=== PATIENT | female | born 1995 | race Caucasian/White ===

== ENCOUNTER 2019-05-13 12:08 | Emergency (ER) | payer SELFPAY ==
[2019-05-13 12:16] VITALS: BP 114/83; PULSE 74; RESP 14; TEMP 36.9; O2SAT 99; BMI 20.8
[2019-05-13] MEDS: KETOROLAC 60 MG/2 ML VIAL IM (12:26)
[2019-05-13] MEDS: TET,DIPH,PERTUSS(ACELL),VAC/PF 0.5 ML SYRINGE IM (12:26)
--- NOTE | 2019-05-13 12:55 | PC.NURSE ---
Soaked the hand for 15 min in warm, soapy water per provider order.
--- NOTE | 2019-05-13 13:05 | ED_ITS ---
HPI - Wound/Laceration <GIULIANA Botello - Last Filed: 05/13/19 16:17> General Chief Complaint: Wound/Laceration Stated Complaint: cat bites to left hand today Time Seen by Provider: 05/13/19 12:12 Source: patient Mode of arrival: ambulatory Limitations: no limitations History of Present Illness HPI narrative: The patient is a 23-year-old female with history of GERD current smoker presents with a chief complaint of cat bite. She states she was bit by her own cat when it got scared. She does not know when her last tetanus was. She states the cat is vaccinated. She has not taken anything for the pain. She states she has multiple puncture blanton throughout her hand. Related Data Previous Rx's Medication Instructions Recorded cyclobenzaprine 5 mg PO Q8HP PRN #10 tab 11/18/17 omeprazole 20 mg PO QDAY #14 cap 11/18/17 amoxicillin-pot clavulanate 1 tab PO BID #20 tab 05/13/19 [Augmentin] ketorolac 10 mg PO TID PRN #15 tab 05/13/19 Allergies Allergy/AdvReac Type Severity Reaction Status Date / Time No Known Drug Allergies Allergy Verified 05/13/19 12:16 Review of Systems <GIULIANA Botello - Last Filed: 05/13/19 16:17> Review of Systems GENERAL: Denies chills, fatigue, malaise, fever, sweats. HEENT: Denies sinus pain, ear pain, sore throat, difficulty swallowing, dizziness. RESPIRATORY: Denies dyspnea, cough, wheezing, hemoptysis, sputum. CARDIOVASCULAR: Denies chest pain, palpitations, orthopnea, edema, GASTROINTESTINAL: Denies nausea, vomiting, abdominal pain, diarrhea, constipation, melena. : Denies dysuria, frequency, incontinence, hematuria, urinary retention. MUSCULOSKELETAL: See HPI SKIN: See HPI NEUROLOGIC: Denies weakness, headache, numbness, change in speech, confusion, seizures, incoordination. PSYCHIATRIC: No concerning psychosocial issues. 12 point review of systems is negative except for those stated above PFSH <GIULIANA Botello - Last Filed: 05/13/19 16:17> Medical History (Updated 05/13/19 @ 16:16 by Rebeka Jamie, [employer]) Family history non-contributory (Acute) Medical history non-contributory (Acute) Social History Smoking Status: Current every day smoker Social History Smoking Status: Current every day smoker Exam <GIULIANA Botello - Last Filed: 05/13/19 16:17> Narrative Exam Narrative: GENERAL: This is a well-nourished, well-developed patient, no acute distress HEAD: Atraumatic. Normocephalic. No temporal or scalp tenderness. EYES: Pupils equal round and reactive. Extraocular motions intact. No scleral icterus. No injection or drainage. ENT: Nose without bleeding, purulent drainage or septal hematoma. Throat without erythema, tonsillar hypertrophy or exudate. Uvula midline. Airway patent. NECK: Trachea midline. No JVD or lymphadenopathy. Supple, nontender, no meningeal signs. CARDIOVASCULAR: Regular rate and rhythm RESPIRATORY: No cough. No increased respiratory effort. No accessory muscle use. EXTREMITIES: See below. Capillary refill less than 2 seconds all fingers left hand. BACK: Nontender without deformity or crepitance. No flank tenderness. NEURO: AOx3. SKIN: Multiple puncture blanton over left hand and fingers. Multiple puncture blanton noted left index finger. Swelling and decreased flexion noted left index finger. Patient is able to flex and extend all fingers against resistance. Initial Vital Signs Initial Vital Signs: Vital Signs Temperature 98.4 F 05/13/19 12:16 Pulse Rate 74 05/13/19 12:16 Respiratory Rate 14 05/13/19 12:16 Blood Pressure 114/83 05/13/19 12:16 Pulse Oximetry 99 05/13/19 12:16 <Mercy Springer MD - Last Filed: 05/13/19 19:55> Initial Vital Signs Initial Vital Signs: Vital Signs Temperature 98.4 F 05/13/19 12:16 Pulse Rate 74 05/13/19 12:16 Respiratory Rate 14 05/13/19 12:16 Blood Pressure 114/83 05/13/19 12:16 Pulse Oximetry 99 05/13/19 12:16 Course <GIULIANA Botello - Last Filed: 05/13/19 16:17> Orders Ordered: Discontinued Medications Diphtheria/Tetanus/Acell Pertussis (Adacel) 0.5 ml IM .ONCE ONE Stop: 05/13/19 12:18 Last Admin: 05/13/19 12:26 Dose: 0.5 ml Ketorolac Tromethamine (Toradol) 60 mg IM NOW ONE Stop: 05/13/19 12:18 Last Admin: 05/13/19 12:26 Dose: 60 mg Vital Signs - 8 hr 05/13/19 12:16 05/13/19 13:43 Temperature 98.4 F Pulse Rate 74 54 L Respiratory Rate 14 14 Blood Pressure 114/83 93/61 Pulse Oximetry 99 95 <Mercy Springer MD - Last Filed: 05/13/19 19:55> Orders Ordered: Discontinued Medications Diphtheria/Tetanus/Acell Pertussis (Adacel) 0.5 ml IM .ONCE ONE Stop: 05/13/19 12:18 Last Admin: 05/13/19 12:26 Dose: 0.5 ml Ketorolac Tromethamine (Toradol) 60 mg IM NOW ONE Stop: 05/13/19 12:18 Last Admin: 05/13/19 12:26 Dose: 60 mg Vital Signs - 8 hr 05/13/19 12:16 05/13/19 13:43 Temperature 98.4 F Pulse Rate 74 54 L Respiratory Rate 14 14 Blood Pressure 114/83 93/61 Pulse Oximetry 99 95 MDM - Wound/Laceration <GIULIANA Botello - Last Filed: 05/13/19 16:17> MDM Narrative Medical decision making narrative: The patient is a 23-year-old female who presents with a chief complaint of a cat bite to her hand. Her tetanus was updated. The patient repeatedly declined an x-ray. She is neurovascularly intact, and has motion of all fingers. I will start her on Augmentin. She was cleansed with Hibiclens and water. She was given Toradol in the emergency department I gave her prescription thereof with strict instructions to not combine with any other anti-inflammatories. The CaT was vaccinated. I did discuss strict follow-up precautions. Discussed monitoring for decreased range of motion, redness, fever for swelling. Patient states understanding of when to come back to ER. Encouraged her to follow up with her PCP, and states that she would call them tomorrow. No questions or concerns upon discharge. Discharge Plan Departure Patient Disposition: Home Clinical Impression: Cat bite Qualifiers: Encounter type: initial encounter Qualified Code(s): W55.01XA - Bitten by cat, initial encounter Discharge Date/Time: 05/13/19 13:43 Interventions: ED Discharge Assessment Last Done: 05/13/19 13:43 Instructions: DI for Animal Bites, DI for Puncture Wound, DI for Cat Bite Activity Restrictions/Additional Instructions: Today we updated your tetanus, cleaned your wounds, and gave you and anti- inflammatory injection. I have given you a prescription of Toradol. You can start taking this 8 hours after the injection in the emergency department. I have given you a prescription for antibiotics. Please carefully monitor your wounds for worsening, decreased range of motion etc. Please have a very low threshold regarding coming back to the emergency department or following up with your provider. Please come back to the emergency department for any acute concerns. Please follow-up with primary care physician as soon as possible Prescriptions: New ketorolac 10 mg tablet 10 mg PO TID PRN (Reason: pain) Qty: 15 RF: 0 amoxicillin-pot clavulanate [Augmentin] 875-125 mg tablet 1 tab PO BID Qty: 20 RF: 0 No Action omeprazole 20 MG capsule,delayed release(DR/EC) 20 mg PO QDAY Qty: 14 RF: 0 cyclobenzaprine 5 MG tablet 5 mg PO Q8HP PRNQty: 10 RF: 0 Referrals: Ellie Espinal DO [Non-Staff] -
[2019-05-13 13:43] VITALS: BP 93/61; PULSE 54; RESP 14; O2SAT 95
== END 2019-05-13 13:43 | disposition home or self-care (01) ==
PROVIDERS: Emergency Provider Nurse Practitioner Family
DX: S61.452A Open bite of left hand, initial encounter (principal); W55.01XA Bitten by cat, initial encounter
CPT/HCPCS: 90471; 96372; 99283; 90715; J1885

== ENCOUNTER 2019-08-07 09:05 | Emergency (ER) | payer OTHER, MEDICAID, SELFPAY ==
[2019-08-07 09:15] VITALS: BP 120/76; PULSE 86; RESP 16; TEMP 37; O2SAT 100
[2019-08-07] MEDS: ONDANSETRON 4 MG ODT SL (09:37)
--- NOTE | 2019-08-07 11:08 | ED.NAVMDI ---
HPI - Nausea/Vomiting/Diarrhea General Chief complaint: Nausea/Vomiting/Diarrhea Stated complaint: 6 wks ob/naus & vom. ? dehydration Time Seen by Provider: 08/07/19 09:26 Source: patient Mode of arrival: ambulatory Limitations: no limitations History of Present Illness HPI Narrative: This is a 23-year-old female comes to the emergency department with complaint of nausea and vomiting. She has had emesis typically once a day sometimes more frequently. This morning she had 2 episodes. She has been nauseated for the last couple weeks. She has not had any fevers or chills. No abdominal pain, no diarrhea constipation, no frequency dysuria or urgency. No vaginal bleeding. Her last period was about 6 weeks ago she had a small amount of bleeding for just 1 day. Patient states that she does have any other issues. No tobacco, no alcohol. She quit using marijuana about a week ago. Patient denies any allergies to medications. No prior pregnancies. No prior surgery. Related Data Previous Rx's Medication Instructions Recorded ondansetron HCl [Zofran] 4 mg PO QID PRN #14 tab 08/07/19 Allergies Allergy/AdvReac Type Severity Reaction Status Date / Time No Known Drug Allergies Allergy Verified 08/07/19 09:19 Review of Systems Review of Systems ROS Unobtainable: All systems reviewed & are unremarkable except as noted in HPI and below PFSH Medical History Family history non-contributory (Acute) Medical history non-contributory (Acute) Social History Smoking Status: Never smoker Social History Smoking Status: Never smoker Exam Narrative Exam Narrative: GENERAL: Alert and oriented x three, thin, well-appearing female in no acute distress. HEENT: Head normocephalic, atraumatic, EOMI, pupils reactive, face symmetric, moist mucous membranes NECK: Supple, full range of motion CARDIOVASCULAR: Regular rate and rhythm without murmurs, rubs or gallops. RESPIRATORY: Breath sounds equal bilaterally, no wheezes rales or rhonchi. ABDOMEN: Soft, nontender. Normoactive bowel sounds all 4 quadrants. No guarding or rebound, rigidity, no mass : No CVA tenderness EXTREMITIES: Normal range of motion, no clubbing or edema. Neurovascularly intact NEUROLOGICAL: Cranial nerves II through XII grossly intact. Moving all extremities SKIN: Warm, dry, no petechiae, no rashes or lesions. Initial Vital Signs Initial Vital Signs: Vital Signs Temperature 98.6 F 08/07/19 09:15 Pulse Rate 86 08/07/19 09:15 Respiratory Rate 16 08/07/19 09:15 Blood Pressure 120/76 08/07/19 09:15 Pulse Oximetry 100 08/07/19 09:15 Course Orders Ordered: Discontinued Medications Ondansetron HCl (Zofran Odt) 4 mg SL NOW ONE Stop: 08/07/19 09:27 Last Admin: 08/07/19 09:37 Dose: 4 mg Documented by: MILENA Vital Signs Vital signs: Vital Signs - 8 hr 08/07/19 11:31 08/07/19 11:33 Pulse Rate 82 72 Respiratory Rate 16 16 Blood Pressure 116/68 Blood Pressure [Left Arm] 108/65 Pulse Oximetry 100 100 MDM - Nausea/Vomiting/Diarrhea Lab Data Labs: Point of Care Testing Test Results Positive Urine Dip Bedside Urine Glucose Negative Bedside Urine Bilirubin - Negative Bedside Urine Ketone +/- 5 Urine Specific [place] 1.030 Bedside Urine Occult Blood - Negative Bedside Urine pH 5.5 Bedside Urine Protein +/- 15 Bedside Urine Urobilinogen - Negative Bedside Urine Nitrite - Negative Bedside Urine Leukocytes - Negative Esterase MDM Narrative Medical decision making narrative: Patient has intermittent nausea and vomiting. We discussed alternative such as hailey, hailey rodrigue or Sprite type medications and crackers. But she can do Zofran as needed. She is tolerating oral fluids and food in the department. Discharge Plan Departure Patient Disposition: Home Clinical Impression: Nausea and vomiting during Discharge Date/Time: 08/07/19 11:53 Instructions: DI for -- Discomforts and Remedies Activity Restrictions/Additional Instructions: Follow-up with OBGYN at her scheduled appointment. You may take Zofran 1 tablet every 6 hours as needed for nausea. You may try hailey, hailey rodrigue, Sprite or similar options for nausea with . Prescription sent to [facility] in [place]. Return to the emergency department for fevers greater 100.4 F, persistent vomiting, lightheadedness, passing out, new abdominal pain, new vaginal bleeding, black or bloody stools or other new or concerning symptoms. Prescriptions: New ondansetron HCl [Zofran] 4 mg tablet 4 mg PO QID PRN (Reason: nausea and vomiting) Qty: 14 RF: 0 Referrals: Ellie Espinal DO [Primary Care Provider] - Stand Alone Forms: Work Release Note
[2019-08-07 11:31] VITALS: BP 108/65; PULSE 82; RESP 16; O2SAT 100
[2019-08-07 11:33] VITALS: BP 116/68; PULSE 72; RESP 16; O2SAT 100
== END 2019-08-07 11:53 | disposition home or self-care (01) ==
PROVIDERS: Emergency Provider Emergency Medicine; PCP Family Medicine
DX: O21.9 Vomiting of pregnancy, unspecified (principal); Z3A.01 Less than 8 weeks gestation of pregnancy
CPT/HCPCS: 81003; 81025; 99282; 99283

== ENCOUNTER 2019-08-31 01:41 | Emergency (ER) | payer OTHER, MEDICAID, SELFPAY ==
[2019-08-31 01:55] VITALS: BP 105/66; PULSE 68; RESP 14; TEMP 36.7; O2SAT 99; BMI 21.5
[2019-08-31] MEDS: SODIUM CHLORIDE 0.9% 1,000 ML 1000 ML IV ×2 (02:20→04:22)
--- NOTE | 2019-08-31 02:21 | ED.NAVMDI ---
HPI - Nausea/Vomiting/Diarrhea General Chief complaint: Nausea/Vomiting/Diarrhea Stated complaint: approx 8 weeks vomiting/stomach pain Time Seen by Provider: 08/31/19 03:40 Source: patient Mode of arrival: Ambulatory Limitations: no limitations History of Present Illness HPI Narrative: A 23-year-old female comes to the emergency department with complaint of vomiting and abdominal discomfort. Patient states that she is about 8 weeks . She was seen a couple weeks ago by myself for nausea and vomiting she has been using Zofran but continues to emesis throughout the day. She often has multiple episodes and has trouble keeping fluids down. She has not any fevers. She has little bit of abdominal discomfort states she thinks it is from the vomiting. She kind of indicates upper abdomen. She has not had any pelvic pain, she has had normal stools. She has not had any urinary issues no frequency urgency or dysuria. Denies any vaginal bleeding or discharge. Patient is otherwise healthy. She did have a appointment with Dr. Rudolph to establish for care and did have an ultrasound, patient's due date is 04/02/2020. Related Data Home Medications Medication Instructions Recorded Confirmed acyclovir 200 mg capsule 200 mg PO TID 08/14/19 08/20/19 prenat.vits,enid,ist-kenx-nalyq 1 tab PO DAILY 08/14/19 08/20/19 Previous Rx's Medication Instructions Recorded ondansetron 4 mg disintegrating 4 mg PO Q6H PRN #20 tab 08/24/19 tablet metoclopramide HCl [Reglan] 10 mg PO Q6H PRN #10 tab 08/31/19 Allergies Allergy/AdvReac Type Severity Reaction Status Date / Time No Known Drug Allergies Allergy Verified 08/31/19 01:55 Review of Systems Review of Systems ROS Unobtainable: All systems reviewed & are unremarkable except as noted in HPI and below Constitutional Constitutional: Denies chills, Denies fever(s), Denies lethargy and Denies weakness Gastrointestinal Gastrointestinal: Reports abdominal pain, Denies melena, Denies hematochezia, Denies change in bowel habits, Denies diarrhea, Reports nausea and Reports vomiting Genitourinary Genitourinary: Denies abnormal vaginal bleeding, Denies hematuria, Denies urinary frequency, Denies dysuria, Denies flank pain, Denies urinary incontinence, Denies urinary hesitancy and Denies urinary urgency Musculoskeletal Musculoskeletal: Denies back pain Neurologic Neurologic: Denies weakness [facility], [facility] Social History Smoking Status: Current every day smoker Exam Narrative Exam Narrative: GENERAL: Alert and oriented x three, thin female in no acute distress. HEENT: Head normocephalic, atraumatic, EOMI, pupils reactive, face symmetric, moist mucous membranes NECK: Supple, full range of motion CARDIOVASCULAR: Regular rate and rhythm without murmurs, rubs or gallops. RESPIRATORY: Breath sounds equal bilaterally, no wheezes rales or rhonchi. ABDOMEN: Soft, mild generalized tenderness. Normoactive bowel sounds all 4 quadrants. No guarding or rebound, rigidity, no mass : No CVA tenderness EXTREMITIES: Normal range of motion, no clubbing or edema. Neurovascularly intact NEUROLOGICAL: Cranial nerves II through XII grossly intact. Moving all extremities SKIN: Warm, dry, no petechiae, no rashes or lesions. Initial Vital Signs Initial Vital Signs: Vital Signs Temperature 98.1 F 08/31/19 01:55 Pulse Rate 68 08/31/19 01:55 Respiratory Rate 14 08/31/19 01:55 Blood Pressure 105/66 08/31/19 01:55 Pulse Oximetry 99 08/31/19 01:55 Course Orders Ordered: ED Orders 08/31/19 02:12 Complete Blood Count AUTO DIFF Stat Comprehensive Metabolic Panel Stat Lipase Stat 08/31/19 04:02 US OB <= 14 weeks fetus Stat Discontinued Medications Sodium Chloride (Normal Saline 0.9%) 1,000 mls @ 1,000 mls/hr IV BOLUS ONE Stop: 08/31/19 03:16 Last Infusion: 08/31/19 04:00 Dose: 1,000 mls/hr Documented by: Admin: 08/31/19 02:20 Dose: 1,000 mls/hr Documented by: MMCFARL Sodium Chloride (Normal Saline 0.9%) 1,000 mls @ 1,000 mls/hr IV BOLUS ONE Stop: 08/31/19 05:19 Last Infusion: 08/31/19 05:51 Dose: 1,000 mls/hr Documented by: Admin: 08/31/19 04:22 Dose: 1,000 mls/hr Documented by: MMCFARL Metoclopramide HCl (Reglan) 10 mg IV NOW ONE Stop: 08/31/19 05:03 Last Admin: 08/31/19 05:05 Dose: 10 mg Documented by: TERESAFARL Ondansetron HCl (Zofran) 4 mg IV NOW ONE Stop: 08/31/19 02:19 Last Admin: 08/31/19 04:00 Dose: 4 mg Documented by: JAREN Vital Signs Vital signs: Vital Signs - 8 hr 08/31/19 01:55 08/31/19 05:05 Temperature 98.1 F Pulse Rate 68 80 Respiratory Rate 14 74 H Blood Pressure 105/66 Blood Pressure [Right Arm] 127/73 Pulse Oximetry 99 100 MDM - Nausea/Vomiting/Diarrhea Lab Data Attestation: I reviewed the patient's lab results. Result diagrams: 08/31/19 02:12 08/31/19 02:12 Labs: Lab Results 08/31/19 08/31/19 Range/Units 02:12 02:12 WBC 18.0 H (4.5-11.0) X10^3/uL RBC 3.86 L (4.0-5.2) X10^6/uL Hgb 11.6 L (12.0-16.0) g/dL Hct 34.2 L (36-46) % MCV 88.7 (80-100) fL MCH 30.2 (26-34) PG MCHC 34.0 (30-36) % RDW 12.7 (11.6-14.8) % Plt Count 438 H (150-400) X10^3/uL Neut % (Auto) 90.1 H (50-75) % Lymph % (Auto) 7.0 L (25-40) % [place] % (Auto) 2.7 L (3-14) % Eos % (Auto) 0.0 L (2-4) % Baso % (Auto) 0.2 (0-2) % Neut # (Auto) 69470 H (3466-7348) /uL Lymph # (Auto) 1300 (9795-3315) /uL [place] # (Auto) 500 (0-900) /uL Eos # (Auto) 0 (0-450) /uL Baso # (Auto) 0 (0-100) /uL Sodium 138 (137-145) mmol/L Potassium 3.9 (3.4-5.1) mmol/L Chloride 100 (98-107) mmol/L Carbon Dioxide 27 (22-32) mmol/L BUN 14 (7-17) mg/dL Creatinine 0.50 L (0.52-1.04) mg/dL Estimated GFR > 60.0 (>60) mL/min BUN/Creatinine Ratio 28.0 H (6-22) Glucose 130 H (70-100) mg/dL Calcium 9.5 (8.4-10.2) mg/dL Total Bilirubin 0.9 (0.2-1.3) mg/dL AST 22 (14-36) IU/L ALT 10 (9-52) IU/L Alkaline Phosphatase 39 (38-126) U/L Total Protein 8.1 (6.3-8.2) g/dL Albumin 4.6 (3.5-5.0) g/dL Globulin 3.5 (1.7-4.1) g/dL Albumin/Globulin Ratio 1.3 (1.0-2.8) Lipase 27 (23-300) U/L Urine Dip Bedside Urine Glucose Negative Bedside Urine Bilirubin - Negative Bedside Urine Ketone +/- 5 Urine Specific [place] 1.015 Bedside Urine Occult Blood - Negative Bedside Urine pH 6.5 Bedside Urine Protein + 30 Bedside Urine Urobilinogen +/- 1mg Bedside Urine Nitrite - Negative Bedside Urine Leukocytes - Negative Esterase Imaging Data Ob ultrasound: Radiologist's impression: Live intrauterine fetus corresponding to a mean gestational age of 9 weeks and 3 with positive cardiac activity measuring 185 beats per minute with an CASSIDY of 04/01/2020. MDM Narrative Medical decision making narrative: Patient here has received 2 L of fluids total did have some Zofran, patient given a dose of Reglan. She has not had any more emesis overnight. She is feeling better at this time feels comfortable returning home. Her abdominal exam is benign, she does have a leukocytosis but no other signs of infection at this time. Discharge Plan Departure Patient Disposition: Home Clinical Impression: Vomiting affecting Instructions: DI for Hyperemesis Gravidarum Activity Restrictions/Additional Instructions: Follow-up with Dr. Hensley in the next week. Call for an appointment. You may continue to use Zofran if it is helpful. You may take 1 tablet every 6 hours as needed. Try small snacks, infrequent small amounts of liquids. If this is not helpful you may try Reglan 1 tablet every 6 hours as needed for symptoms. Prescription was sent to [facility] in [place]. Return to the emergency department for fevers greater than 100.4 F, lightheadedness, passing out, new chest pain or shortness of breath, persistent vomiting concerns dehydration, black or bloody stools, vaginal bleeding or new abdominal or severe pelvic pain. Prescriptions: New metoclopramide HCl [Reglan] 10 mg tablet 10 mg PO Q6H PRN (Reason: nausea and vomiting) Qty: 10 RF: 0 No Action ondansetron 4 mg tablet,disintegrating 4 mg PO Q6H PRN (Reason: Nausea and Vomiting) Qty: 20 RF: 0 prenat.vits,enid,qcu-zvdr-vfwgt tablet 1 tab PO DAILY RF: 0 acyclovir 200 mg capsule 200 mg PO TID RF: 0 Referrals: [facility] Rudolph MD [Physician] - Ellie Espinal DO [Primary Care Provider] - Stand Alone Forms: Work Release Note
[2019-08-31] MEDS: ONDANSETRON 4 MG/2 ML INJ IV (04:00)
--- NOTE | 2019-08-31 04:02 | DI.US.S_ITS ---
PROCEDURE: US OB <= 14 WEEKS FETUS INDICATIONS: ABDOMINAL PAIN OUTSIDE/PRIOR DATING DATA: Last menstrual period (LMP): 06/27/2019. LMP-based estimated date of delivery (CASSIDY): 04/02/2020. First dating scan (date and location): 08/31/2019. Estimated date of delivery (CASSIDY) from first dating scan: 04/01/2020. TECHNIQUE: Real-time scanning was performed of the fetus and maternal pelvic organs, with image documentation. Endovaginal scanning was also performed to better visualize the fetus and maternal ovaries. COMPARISON: None. FINDINGS: Embryo: There is a single living IUP with estimated gestational age of 9 weeks 3 days corresponding to ultrasound CASSIDY 04/01/2020. cardiac activity is present with heart rate 185 bpm. Measurement variability in dating: +/- 4 weeks by LMP, +/- 7 days by mean sac diameter (use before 6 weeks gestation if crown-rump length not able to be measured), +/- 5 days by crown-rump length (up to 8 weeks 6 days gestation), +/- 7 days by crown-rump length (up to 13 weeks 6 days gestation). Maternal organs: Ovaries are grossly normal. Limited images through the kidneys demonstrate no hydronephrosis. IMPRESSION: 1. A single living intrauterine gestation with an estimated gestational age of 9 weeks 3 days corresponding to ultrasound CASSIDY 04/01/2020. 2. No perigestational bleed. Dictated by: Ed Kaplan M.D. on 08/31/2019 at 10:20 Approved by: Ed Kaplan M.D. on 08/31/2019 at 10:23
[2019-08-31 04:08] LABS: Add Manual Diff / Slide Review NO; Basophils Absolute Auto 0 /uL (0-100); Basophils Percent Auto 0.2 % (0-2); Eosinophils Absolute Auto 0 /uL (0-450); Hematocrit 34.2 % (36-46); Hemoglobin 11.6 g/dL (12.0-16.0); Lymphocytes Absolute Auto 1300 /uL (1100-4500); Mean Corpuscular Hemoglobin 30.2 PG (26-34); Mean Corpuscular Volume 88.7 fL (80-100); Monocytes Absolute Auto 500 /uL (0-900); Monocytes Percent Auto 2.7 % (3-14); Neutrophils Absolute Auto 16200 /uL (1500-7000); Neutrophils Percent Auto 90.1 % (50-75); Platelet Count 438 X10^3/uL (150-400); Red Blood Cell Count 3.86 X10^6/uL (4.0-5.2); Red Cell Distribution Width 12.7 % (11.6-14.8)
[2019-08-31 04:12] LABS: Alanine Aminotransferase 10 IU/L (9-52); Albumin 4.6 g/dL (3.5-5.0); Albumin Globulin Ratio 1.3 (1.0-2.8); Alkaline Phosphatase 39 U/L (38-126); Aspartate Aminotransferase 22 IU/L (14-36); Bilirubin Total 0.9 mg/dL (0.2-1.3); Blood Urea Nitrogen 14 mg/dL (7-17); Calcium 9.5 mg/dL (8.4-10.2); Carbon Dioxide 27 mmol/L (22-32); Chloride 100 mmol/L (98-107); Estimated Glomerular Filt Rate > 60.0 mL/min (>60); Globulin 3.5 g/dL (1.7-4.1); Glucose 130 mg/dL (70-100); HEMOLYSIS < 15 (0-50); Lipase 27 U/L (23-300); Potassium 3.9 mmol/L (3.4-5.1); Sodium 138 mmol/L (137-145); Total Protein 8.1 g/dL (6.3-8.2)
[2019-08-31 05:05] VITALS: BP 127/73; PULSE 80; RESP 74; O2SAT 100
[2019-08-31] MEDS: METOCLOPRAMIDE 10 MG/2 ML INJ IV (05:05)
== END 2019-08-31 07:03 | disposition home or self-care (01) ==
PROVIDERS: Emergency Provider Emergency Medicine; PCP Family Medicine
DX: O21.9 Vomiting of pregnancy, unspecified (principal); Z3A.09 9 weeks gestation of pregnancy
CPT/HCPCS: 36415; 76801; 80053; 81003; 83690; 85025; 96361; 96374; 96375; 99283; 99284; J2405; J2765

== ENCOUNTER 2019-09-01 11:48 | Emergency (ER) | payer OTHER, MEDICAID, SELFPAY ==
[2019-09-01 11:56] VITALS: BP 132/74; PULSE 78; RESP 18; TEMP 36.9; O2SAT 100
[2019-09-01] MEDS: SODIUM CHLORIDE 0.9% 1,000 ML 1000 ML IV ×2 (12:10→13:37)
[2019-09-01] MEDS: ONDANSETRON 4 MG/2 ML INJ IV ×2 (12:10→13:35)
--- NOTE | 2019-09-01 12:27 | PC.NURSE ---
Pt admits to MJ use. Encouraged to stop smoke / ingesting as unknown harm to fetus and may be making vomiting worse r/t cyclic vomiting syndrome. Pt verbalized understanding.
--- NOTE | 2019-09-01 12:28 | ED_ITS ---
HPI - Nausea/Vomiting/Diarrhea <GIULIANA Botello - Last Filed: 09/01/19 16:55> General Chief complaint: Nausea/Vomiting/Diarrhea Stated complaint: nausea/vomiting 8 weeks preg/needs fluids Time Seen by Provider: 09/01/19 12:08 Source: patient Mode of arrival: Ambulatory Limitations: no limitations History of Present Illness HPI Narrative: The patient is a 23-year-old female current marijuana smoker with history of 9 week who presents with a chief complaint of nausea and vo miting. She was evaluated at this facility at 3:00 a.m. on 08/31/2019. She states that she has taken Zofran at 6:00 a.m. and Reglan at 10:00 a.m. and states that she continues to be unable to keep anything down. She continues marijuana smoking. She denies any dysuria urgency or frequency. She complains of stomach aching due to some much vomiting. She complains of slight cough. She states that she has been able to urinate this morning Related Data Home Medications Medication Instructions Recorded Confirmed acyclovir 200 mg capsule 200 mg PO TID 08/14/19 08/20/19 prenat.vits,enid,uvu-zzgj-vwvew 1 tab PO DAILY 08/14/19 08/20/19 Previous Rx's Medication Instructions Recorded ondansetron 4 mg disintegrating 4 mg PO Q6H PRN #20 tab 08/24/19 tablet metoclopramide HCl [Reglan] 10 mg PO Q6H PRN #10 tab 08/31/19 ondansetron 4 mg PO Q6H PRN #20 tab 09/01/19 promethazine [Phenergan] 25 mg ND Q6H PRN #4 each 09/01/19 Allergies Allergy/AdvReac Type Severity Reaction Status Date / Time No Known Drug Allergies Allergy Verified 08/31/19 01:55 Review of Systems <GIULIANA Botello - Last Filed: 09/01/19 16:55> Review of Systems Narrative: GENERAL: Denies chills, fatigue, malaise, fever, sweats. HEENT: Denies sinus pain, ear pain, sore throat, difficulty swallowing, dizziness. RESPIRATORY: Denies dyspnea, cough, wheezing, hemoptysis, sputum. CARDIOVASCULAR: Denies chest pain, palpitations, orthopnea, edema, GASTROINTESTINAL: See HPI : Denies dysuria, frequency, incontinence, hematuria, urinary retention. MUSCULOSKELETAL: denies weakness, joint pain, or bony pain SKIN: Denies rash, skin lesions, or other NEUROLOGIC: Denies weakness, headache, numbness, change in speech, confusion, seizures, incoordination. PSYCHIATRIC: No concerning psychosocial issues. 12 point review of systems is negative except for those stated above Patient History <GIULIANA Botello - Last Filed: 09/01/19 16:55> Medical/Surgical History Medical History Family history non-contributory (Acute) Medical history non-contributory (Acute) Social History Smoking Status: Former smoker Family/Social History Social History Smoking Status: Former smoker alcohol intake frequency: other Substance Use Type: marijuana Exam <GIULIANA Botello - Last Filed: 09/01/19 16:55> Narrative Exam Narrative: GENERAL: This is a well-nourished, well-developed patient, appears uncomfortable HEAD: Atraumatic. Normocephalic. No temporal or scalp tenderness. EYES: Pupils equal round and reactive. Extraocular motions intact. No scleral icterus. No injection or drainage. ENT: Nose without bleeding, purulent drainage or septal hematoma. Throat without erythema, tonsillar hypertrophy or exudate. Uvula midline. Airway patent. NECK: Trachea midline. No JVD or lymphadenopathy. Supple, nontender, no meningeal signs. CARDIOVASCULAR: Regular rate and rhythm without murmurs, gallops, or rubs. RESPIRATORY: Clear to auscultation. Breath sounds equal bilaterally. No wheezes, rales, or rhonchi. No accessory muscle use. No stridor. GASTROINTESTINAL: Abdomen soft, diffusely tender, nondistended. No hepato- splenomegaly, or palpable masses. No guarding. No peritoneal signs. EXTREMITIES: No clubbing, cyanosis, or edema. No joint tenderness, effusion, or edema noted. BACK: Nontender without deformity or crepitance. No flank tenderness. NEURO: AOx3. SKIN: No rash or erythema on visible skin Initial Vital Signs Initial Vital Signs: Vital Signs Temperature 98.4 F 09/01/19 11:56 Pulse Rate 78 09/01/19 11:56 Respiratory Rate 18 09/01/19 11:56 Blood Pressure 132/74 09/01/19 11:56 Pulse Oximetry 100 09/01/19 11:56 <Vinny Jose DO - Last Filed: 09/01/19 17:06> Initial Vital Signs Initial Vital Signs: Vital Signs Temperature 98.4 F 09/01/19 11:56 Pulse Rate 78 09/01/19 11:56 Respiratory Rate 18 09/01/19 11:56 Blood Pressure 132/74 09/01/19 11:56 Pulse Oximetry 100 09/01/19 11:56 Course <AGUEDA Botello-BC - Last Filed: 09/01/19 16:55> Orders Ordered: ED Orders 09/01/19 12:06 Complete Blood Count AUTO DIFF Stat Comprehensive Metabolic Panel Stat Lipase Stat Partial Thromboplastin Time Stat Prothrombin Time INR Stat 09/01/19 12:56 US OB <= 14 weeks fetus Stat 09/01/19 14:45 Urine Drug Screen, Rapid Stat Urine Microscopic Stat Discontinued Medications Sodium Chloride (Normal Saline 0.9%) 1,000 mls @ 1,000 mls/hr IV BOLUS ONE Stop: 09/01/19 13:00 Last Infusion: 09/01/19 13:10 Dose: 0 mls/hr Documented by: Admin: 09/01/19 12:10 Dose: 1,000 mls/hr Documented by: REID Sodium Chloride (Normal Saline 0.9%) 1,000 mls @ 1,000 mls/hr IV BOLUS ONE Stop: 09/01/19 13:27 Last Infusion: 09/01/19 14:41 Dose: 0 mls/hr Documented by: Admin: 09/01/19 13:37 Dose: 1,000 mls/hr Documented by: MICK Metoclopramide HCl (Reglan) 10 mg IV NOW ONE Stop: 09/01/19 14:41 Last Admin: 09/01/19 14:46 Dose: 10 mg Documented by: MATILDA Ondansetron HCl (Zofran) 4 mg IV NOW ONE Stop: 09/01/19 12:01 Last Admin: 09/01/19 12:10 Dose: 4 mg Documented by: REID Ondansetron HCl (Zofran) 4 mg IV NOW ONE Stop: 09/01/19 13:29 Last Admin: 09/01/19 13:35 Dose: 4 mg Documented by: MICK Potassium Chloride (Potassium Chloride) 40 meq PO NOW ONE Stop: 09/01/19 13:29 Last Admin: 09/01/19 13:36 Dose: 40 meq Documented by: MICK Reevaluation(s) Reevaluation #1: I checked on the patient several times throughout her stay in the emergency department. Consultations Consultation #1: I spoke with Dr. Cobb, Ob on-call regarding the patient's persistent nausea and vomiting combined with her ultrasound results. Per Dr. Cobb's instructions, I did not discuss with the patient the specifics of her ultrasound results, rather that she would need follow-up imaging. DR Cobb will communicate with Dr. Rudolph regarding the patient being set up an the infusion clinic as well as further workup and evaluation including further imaging. Time: 15:50 Vital Signs Vital signs: Vital Signs - 8 hr 09/01/19 11:56 09/01/19 12:52 09/01/19 14:30 Temperature 98.4 F Pulse Rate 78 60 76 Respiratory Rate 18 17 Blood Pressure 132/74 Blood Pressure [Left Arm] 139/83 125/70 Pulse Oximetry 100 100 100 09/01/19 16:02 Temperature Pulse Rate 72 Respiratory Rate Blood Pressure Blood Pressure [Left Arm] 111/62 Pulse Oximetry 99 <Vinny Jose DO - Last Filed: 09/01/19 17:06> Orders Ordered: ED Orders 09/01/19 12:06 Complete Blood Count AUTO DIFF Stat Comprehensive Metabolic Panel Stat Lipase Stat Partial Thromboplastin Time Stat Prothrombin Time INR Stat 09/01/19 12:56 US OB <= 14 weeks fetus Stat 09/01/19 14:45 Urine Drug Screen, Rapid Stat Urine Microscopic Stat Discontinued Medications Sodium Chloride (Normal Saline 0.9%) 1,000 mls @ 1,000 mls/hr IV BOLUS ONE Stop: 09/01/19 13:00 Last Infusion: 09/01/19 13:10 Dose: 0 mls/hr Documented by: Admin: 09/01/19 12:10 Dose: 1,000 mls/hr Documented by: REID Sodium Chloride (Normal Saline 0.9%) 1,000 mls @ 1,000 mls/hr IV BOLUS ONE Stop: 09/01/19 13:27 Last Infusion: 09/01/19 14:41 Dose: 0 mls/hr Documented by: Admin: 09/01/19 13:37 Dose: 1,000 mls/hr Documented by: MICK Metoclopramide HCl (Reglan) 10 mg IV NOW ONE Stop: 09/01/19 14:41 Last Admin: 09/01/19 14:46 Dose: 10 mg Documented by: MATILDA Ondansetron HCl (Zofran) 4 mg IV NOW ONE Stop: 09/01/19 12:01 Last Admin: 09/01/19 12:10 Dose: 4 mg Documented by: REID Ondansetron HCl (Zofran) 4 mg IV NOW ONE Stop: 09/01/19 13:29 Last Admin: 09/01/19 13:35 Dose: 4 mg Documented by: MICK Potassium Chloride (Potassium Chloride) 40 meq PO NOW ONE Stop: 09/01/19 13:29 Last Admin: 09/01/19 13:36 Dose: 40 meq Documented by: MICK Vital Signs Vital signs: Vital Signs - 8 hr 09/01/19 11:56 09/01/19 12:52 09/01/19 14:30 Temperature 98.4 F Pulse Rate 78 60 76 Respiratory Rate 18 17 Blood Pressure 132/74 Blood Pressure [Left Arm] 139/83 125/70 Pulse Oximetry 100 100 100 09/01/19 16:02 Temperature Pulse Rate 72 Respiratory Rate Blood Pressure Blood Pressure [Left Arm] 111/62 Pulse Oximetry 99 MDM - Nausea/Vomiting/Diarrhea <JENNY Botello - Last Filed: 09/01/19 16:55> Lab Data Result diagrams: 09/01/19 12:06 09/01/19 12:06 Labs: Lab Results 09/01/19 09/01/19 09/01/19 Range/Units 12:06 12:06 12:06 WBC 20.2 H (4.5-11.0) X10^3/uL RBC 3.71 L (4.0-5.2) X10^6/uL Hgb 11.3 L (12.0-16.0) g/dL Hct 33.0 L (36-46) % MCV 88.8 (80-100) fL MCH 30.5 (26-34) PG MCHC 34.4 (30-36) % RDW 12.7 (11.6-14.8) % Plt Count 525 H (150-400) X10^3/uL Neut % (Auto) 93.1 H (50-75) % Lymph % (Auto) 5.3 L (25-40) % [place] % (Auto) 1.4 L (3-14) % Eos % (Auto) 0.0 L (2-4) % Baso % (Auto) 0.2 (0-2) % Neut # (Auto) 85855 H (6038-8740) /uL Lymph # (Auto) 1100 (9560-9740) /uL [place] # (Auto) 300 (0-900) /uL Eos # (Auto) 0 (0-450) /uL Baso # (Auto) 0 (0-100) /uL PT 12.7 (10.1-12.7) SECONDS INR 1.1 (0.9-1.3) APTT 24 L (26.4-36.2) SECONDS Sodium 137 (137-145) mmol/L Potassium 3.2 L (3.4-5.1) mmol/L Chloride 99 (98-107) mmol/L Carbon Dioxide 23 (22-32) mmol/L BUN 15 (7-17) mg/dL Creatinine 0.40 L (0.52-1.04) mg/dL Estimated GFR > 60.0 (>60) mL/min BUN/Creatinine Ratio 37.5 H (6-22) Glucose 139 H (70-100) mg/dL Calcium 9.3 (8.4-10.2) mg/dL Total Bilirubin 1.1 (0.2-1.3) mg/dL AST 25 (14-36) IU/L ALT 14 (9-52) IU/L Alkaline Phosphatase 46 (38-126) U/L Total Protein 8.1 (6.3-8.2) g/dL Albumin 4.7 (3.5-5.0) g/dL Globulin 3.4 (1.7-4.1) g/dL Albumin/Globulin Ratio 1.4 (1.0-2.8) Lipase 26 (23-300) U/L Urine RBC (0-5/HPF) Urine WBC (0-5/HPF) Urine Bacteria (None) Ur Culture Indicated? Micro UA Comment U Morph 300 ng/mL cutoff (Negative) Ur Oxycodone Screen (Negative) Urine Methadone Screen (Negative) Ur Barbiturates Screen (Negative) U Tricyclic Antidepress (Negative) Ur Phencyclidine Scrn (Negative) Ur Amphetamines Screen (Negative) U Methamphetamines Scrn (Negative) Ur MDMA Scrn (Ecstasy) (Negative) U Benzodiazepines Scrn (Negative) Urine Cocaine Screen (Negative) U Marijuana (THC) Screen (Negative) 09/01/19 09/01/19 Range/Units 14:45 14:45 WBC (4.5-11.0) X10^3/uL RBC (4.0-5.2) X10^6/uL Hgb (12.0-16.0) g/dL Hct (36-46) % MCV (80-100) fL MCH (26-34) PG MCHC (30-36) % RDW (11.6-14.8) % Plt Count (150-400) X10^3/uL Neut % (Auto) (50-75) % Lymph % (Auto) (25-40) % [place] % (Auto) (3-14) % Eos % (Auto) (2-4) % Baso % (Auto) (0-2) % Neut # (Auto) (6390-7594) /uL Lymph # (Auto) (9032-4364) /uL [place] # (Auto) (0-900) /uL Eos # (Auto) (0-450) /uL Baso # (Auto) (0-100) /uL PT (10.1-12.7) SECONDS INR (0.9-1.3) APTT (26.4-36.2) SECONDS Sodium (137-145) mmol/L Potassium (3.4-5.1) mmol/L Chloride (98-107) mmol/L Carbon Dioxide (22-32) mmol/L BUN (7-17) mg/dL Creatinine (0.52-1.04) mg/dL Estimated GFR (>60) mL/min BUN/Creatinine Ratio (6-22) Glucose (70-100) mg/dL Calcium (8.4-10.2) mg/dL Total Bilirubin (0.2-1.3) mg/dL AST (14-36) IU/L ALT (9-52) IU/L Alkaline Phosphatase (38-126) U/L Total Protein (6.3-8.2) g/dL Albumin (3.5-5.0) g/dL Globulin (1.7-4.1) g/dL Albumin/Globulin Ratio (1.0-2.8) Lipase (23-300) U/L Urine RBC None seen (0-5/HPF) Urine WBC None seen (0-5/HPF) Urine Bacteria None seen (None) Ur Culture Indicated? Cult not indicated Micro UA Comment Microscopic normal U Morph 300 ng/mL cutoff Negative (Negative) Ur Oxycodone Screen Negative (Negative) Urine Methadone Screen Negative (Negative) Ur Barbiturates Screen Negative (Negative) U Tricyclic Antidepress Negative (Negative) Ur Phencyclidine Scrn Negative (Negative) Ur Amphetamines Screen Negative (Negative) U Methamphetamines Scrn Negative (Negative) Ur MDMA Scrn (Ecstasy) Negative (Negative) U Benzodiazepines Scrn Negative (Negative) Urine Cocaine Screen Negative (Negative) U Marijuana (THC) Screen Positive H (Negative) Urine Dip Bedside Urine Glucose 100 mg/dl Bedside Urine Bilirubin - Negative Bedside Urine Ketone +++ 80 Urine Specific [place] 1.015 Bedside Urine Occult Blood - Negative Bedside Urine pH 7.0 Bedside Urine Protein - Negative Bedside Urine Urobilinogen - Negative Bedside Urine Nitrite - Negative Bedside Urine Leukocytes - Negative Esterase Imaging Data us: Radiologist's impression: [place] [address] Ultrasound Report Signed Patient: Jada Lincoln [facility]#: [id number] : 1995Acct:[id number] Age/Sex: 23 / FDate of Service: 09/01/19 Loc: ED Accession Number: [id number] Procedure: US OB <= 14 weeks fetus Ordering Provider: Rebeka AyalaBC PROCEDURE: US OB <= 14 WEEKS FETUS INDICATIONS: CRAMPING; HYPEREMESIS OUTSIDE/PRIOR DATING DATA: Last menstrual period (LMP): 06/27/19. LMP-based estimated date of delivery (CASSIDY): 04/02/20. First dating scan (date and location): 08/31/19. Estimated date of delivery (CASSIDY) from first dating scan: 04/01/20. TECHNIQUE: Real-time scanning was performed of the fetus and maternal pelvic organs, with image documentation. Endovaginal scanning was also performed to better visualize the fetus and maternal ovaries. COMPARISON: [facility], , OB <= 14 WEEKS FETUS, 08/31/2019, 4:27. FINDINGS: Embryo: Single intrauterine is identified with heart rate of 197 beats per minute. [place]-rump length measures 2.8 cm corresponding to 9 weeks 4 days. There is incidental note of prominence within the nuchal region. Measurement variability in dating: +/- 4 weeks by LMP, +/- 7 days by mean sac diameter (use before 6 weeks gestation if crown-rump length not able to be measured), +/- 5 days by crown-rump length (up to 8 weeks 6 days gestation), +/- 7 days by crown-rump length (up to 13 weeks 6 days gestation). Maternal organs: Ovaries are unremarkable. Limited images through the kidneys demonstrate no hydronephrosis. IMPRESSION: 1. Single live intrauterine with elevated heart rate. 2. Prominent nuchal space as above. Development of hygroma cannot be excluded. Recommend short interval imaging followup for continued evaluation. Dictated by: Mary Escobar M.D. on 09/01/2019 at 13:39 Approved by: Mary Escobar M.D. on 09/01/2019 at 13:41 MDM Narrative Medical decision making narrative: The patient is a 23-year-old female who is 9 weeks who presents with a chief complaint of nausea and vomiting. Lab work obtained demonstrates leukocytosis, but this could be reaction to her persistent nausea and vomiting. Urinalysis was taken to rule out UTI. Was came back with no acute findings. The patient does test positive for marijuana I d iscussed at length with her the possibility of cyclic vomiting and discouraged use of marijuana. Given the patient's ultrasound results and persistent nausea vomiting, I contacted Dr. Cobb who will discuss with Dr. Rudolph the possibility of infusion clinic set up. Per Dr. Cobb instruction I did not discuss the patient's ultrasound results with her, rather stating that she would hear from her primary care's office on Tuesday for further imaging and evaluation. The patient felt much improved after 2 L of IV fluid, Zofran and Reglan. The patient stated she did vomit again just prior to discharge, but it was not witnessed. Per Dr. Jose's recommendations, I gave her a prescription of Phene rgan suppositories. I discussed at length coming back to the emergency department for any acute concerns and injuring follow up with primary care provider. Also encouraged patient to take V6 and Unisom as per previous documented conversations with PCP office and recommendations of Dr. Cobb. Gi ent has no questions or concerns upon discharge and states understanding of return precautions as well as follow-up care. <Vinny Jose, DO - Last Filed: 09/01/19 17:06> Lab Data Labs: Lab Results 09/01/19 09/01/19 09/01/19 Range/Units 12:06 12:06 12:06 WBC 20.2 H (4.5-11.0) X10^3/uL RBC 3.71 L (4.0-5.2) X10^6/uL Hgb 11.3 L (12.0-16.0) g/dL Hct 33.0 L (36-46) % MCV 88.8 (80-100) fL MCH 30.5 (26-34) PG MCHC 34.4 (30-36) % RDW 12.7 (11.6-14.8) % Plt Count 525 H (150-400) X10^3/uL Neut % (Auto) 93.1 H (50-75) % Lymph % (Auto) 5.3 L (25-40) % [place] % (Auto) 1.4 L (3-14) % Eos % (Auto) 0.0 L (2-4) % Baso % (Auto) 0.2 (0-2) % Neut # (Auto) 54276 H (2295-1147) /uL Lymph # (Auto) 1100 (4347-0874) /uL [place] # (Auto) 300 (0-900) /uL Eos # (Auto) 0 (0-450) /uL Baso # (Auto) 0 (0-100) /uL PT 12.7 (10.1-12.7) SECONDS INR 1.1 (0.9-1.3) APTT 24 L (26.4-36.2) SECONDS Sodium 137 (137-145) mmol/L Potassium 3.2 L (3.4-5.1) mmol/L Chloride 99 (98-107) mmol/L Carbon Dioxide 23 (22-32) mmol/L BUN 15 (7-17) mg/dL Creatinine 0.40 L (0.52-1.04) mg/dL Estimated GFR > 60.0 (>60) mL/min BUN/Creatinine Ratio 37.5 H (6-22) Glucose 139 H (70-100) mg/dL Calcium 9.3 (8.4-10.2) mg/dL Total Bilirubin 1.1 (0.2-1.3) mg/dL AST 25 (14-36) IU/L ALT 14 (9-52) IU/L Alkaline Phosphatase 46 (38-126) U/L Total Protein 8.1 (6.3-8.2) g/dL Albumin 4.7 (3.5-5.0) g/dL Globulin 3.4 (1.7-4.1) g/dL Albumin/Globulin Ratio 1.4 (1.0-2.8) Lipase 26 (23-300) U/L Urine RBC (0-5/HPF) Urine WBC (0-5/HPF) Urine Bacteria (None) Ur Culture Indicated? Micro UA Comment U Morph 300 ng/mL cutoff (Negative) Ur Oxycodone Screen (Negative) Urine Methadone Screen (Negative) Ur Barbiturates Screen (Negative) U Tricyclic Antidepress (Negative) Ur Phencyclidine Scrn (Negative) Ur Amphetamines Screen (Negative) U Methamphetamines Scrn (Negative) Ur MDMA Scrn (Ecstasy) (Negative) U Benzodiazepines Scrn (Negative) Urine Cocaine Screen (Negative) U Marijuana (THC) Screen (Negative) 09/01/19 09/01/19 Range/Units 14:45 14:45 WBC (4.5-11.0) X10^3/uL RBC (4.0-5.2) X10^6/uL Hgb (12.0-16.0) g/dL Hct (36-46) % MCV (80-100) fL MCH (26-34) PG MCHC (30-36) % RDW (11.6-14.8) % Plt Count (150-400) X10^3/uL Neut % (Auto) (50-75) % Lymph % (Auto) (25-40) % [place] % (Auto) (3-14) % Eos % (Auto) (2-4) % Baso % (Auto) (0-2) % Neut # (Auto) (6936-0479) /uL Lymph # (Auto) (8640-6871) /uL [place] # (Auto) (0-900) /uL Eos # (Auto) (0-450) /uL Baso # (Auto) (0-100) /uL PT (10.1-12.7) SECONDS INR (0.9-1.3) APTT (26.4-36.2) SECONDS Sodium (137-145) mmol/L Potassium (3.4-5.1) mmol/L Chloride (98-107) mmol/L Carbon Dioxide (22-32) mmol/L BUN (7-17) mg/dL Creatinine (0.52-1.04) mg/dL Estimated GFR (>60) mL/min BUN/Creatinine Ratio (6-22) Glucose (70-100) mg/dL Calcium (8.4-10.2) mg/dL Total Bilirubin (0.2-1.3) mg/dL AST (14-36) IU/L ALT (9-52) IU/L Alkaline Phosphatase (38-126) U/L Total Protein (6.3-8.2) g/dL Albumin (3.5-5.0) g/dL Globulin (1.7-4.1) g/dL Albumin/Globulin Ratio (1.0-2.8) Lipase (23-300) U/L Urine RBC None seen (0-5/HPF) Urine WBC None seen (0-5/HPF) Urine Bacteria None seen (None) Ur Culture Indicated? Cult not indicated Micro UA Comment Microscopic normal U Morph 300 ng/mL cutoff Negative (Negative) Ur Oxycodone Screen Negative (Negative) Urine Methadone Screen Negative (Negative) Ur Barbiturates Screen Negative (Negative) U Tricyclic Antidepress Negative (Negative) Ur Phencyclidine Scrn Negative (Negative) Ur Amphetamines Screen Negative (Negative) U Methamphetamines Scrn Negative (Negative) Ur MDMA Scrn (Ecstasy) Negative (Negative) U Benzodiazepines Scrn Negative (Negative) Urine Cocaine Screen Negative (Negative) U Marijuana (THC) Screen Positive H (Negative) Urine Dip Bedside Urine Glucose 100 mg/dl Bedside Urine Bilirubin - Negative Bedside Urine Ketone +++ 80 Urine Specific [place] 1.015 Bedside Urine Occult Blood - Negative Bedside Urine pH 7.0 Bedside Urine Protein - Negative Bedside Urine Urobilinogen - Negative Bedside Urine Nitrite - Negative Bedside Urine Leukocytes - Negative Esterase Discharge Plan Departure Patient Disposition: Home Clinical Impression: Vomiting affecting Discharge Date/Time: 09/01/19 16:28 Instructions: DI for Dehydration -- Adult, DI for Hyperemesis Gravidarum, DI fo r -- Discomforts and Remedies, DI for Nausea -- Adult, DI for Vomiting -- Adult Activity Restrictions/Additional Instructions: Please expect communication from Dr. Rudolph's office regarding further lab work and/or imaging as well as setting you up with the infusion clinic. They will be able to do standing orders for fluids to help with your nausea and vomiting. Please continue to use the prescriptions of Reglan and Zofran for nausea. I have given you a prescription for Zofran. Please resume use of Unisom and B6 as discussed with Dr Rudolph's clinic. Please push fluids do not drink lots of fluids at once. Please focus on small frequent sips. Please stop using marijuana. This can lead to cyclic vomiting syndrome and significantly worsen nausea and vomiting in the long run. Please come back to emergency department for any acute concerns. Prescriptions: New ondansetron 4 mg tablet,disintegrating 4 mg PO Q6H PRN (Reason: nausea and vomiting) Qty: 20 RF: 0 promethazine [Phenergan] 25 mg suppository 25 mg ND Q6H PRN (Reason: nausea and vomiting) Qty: 4 RF: 0 No Action ondansetron 4 mg tablet,disintegrating 4 mg PO Q6H PRN (Reason: Nausea and Vomiting) Qty: 20 RF: 0 prenat.vits,enid,qel-wiku-bzlew tablet 1 tab PO DAILY RF: 0 acyclovir 200 mg capsule 200 mg PO TID RF: 0 metoclopramide HCl [Reglan] 10 mg tablet 10 mg PO Q6H PRN (Reason: nausea and vomiting) Qty: 10 RF: 0 Referrals: Jose Miguel Rudolph MD [Physician] - Ellie Espinal DO [Primary Care Provider] - <Vinny Jose DO - Last Filed: 09/01/19 17:06> Sign Out Provider Sign Out Attestation: I was available for consultation during this patient's emergency department visit. This chart is signed by myself for administrative purposes only. I did not have direct contact with this patient during this visit. They were seen independently by the APC.
[2019-09-01 12:33] LABS: INR 1.1 (0.9-1.3); Prothrombin Time 12.7 SECONDS (10.1-12.7)
[2019-09-01 12:35] LABS: PTT Partial Thromboplastin Tim 24 SECONDS (26.4-36.2)
[2019-09-01 12:39] LABS: Add Manual Diff / Slide Review NO; Basophils Absolute Auto 0 /uL (0-100); Basophils Percent Auto 0.2 % (0-2); Eosinophils Absolute Auto 0 /uL (0-450); Hemoglobin 11.3 g/dL (12.0-16.0); Lymphocytes Absolute Auto 1100 /uL (1100-4500); Lymphocytes Percent Auto 5.3 % (25-40); Mean Corpuscular HGB Conc 34.4 % (30-36); Mean Corpuscular Hemoglobin 30.5 PG (26-34); Mean Corpuscular Volume 88.8 fL (80-100); Monocytes Absolute Auto 300 /uL (0-900); Monocytes Percent Auto 1.4 % (3-14); Neutrophils Absolute Auto 18800 /uL (1500-7000); Neutrophils Percent Auto 93.1 % (50-75); Platelet Count 525 X10^3/uL (150-400); Red Blood Cell Count 3.71 X10^6/uL (4.0-5.2); Red Cell Distribution Width 12.7 % (11.6-14.8); White Blood Cell Count 20.2 X10^3/uL (4.5-11.0)
[2019-09-01 12:41] LABS: Alanine Aminotransferase 14 IU/L (9-52); Albumin 4.7 g/dL (3.5-5.0); Albumin Globulin Ratio 1.4 (1.0-2.8); Alkaline Phosphatase 46 U/L (38-126); Aspartate Aminotransferase 25 IU/L (14-36); BUN Creatinine Ratio 37.5 (6-22); Bilirubin Total 1.1 mg/dL (0.2-1.3); Blood Urea Nitrogen 15 mg/dL (7-17); Calcium 9.3 mg/dL (8.4-10.2); Carbon Dioxide 23 mmol/L (22-32); Chloride 99 mmol/L (98-107); Estimated Glomerular Filt Rate > 60.0 mL/min (>60); Globulin 3.4 g/dL (1.7-4.1); Glucose 139 mg/dL (70-100); HEMOLYSIS 16 (0-50); Lipase 26 U/L (23-300); Potassium 3.2 mmol/L (3.4-5.1); Sodium 137 mmol/L (137-145); Total Protein 8.1 g/dL (6.3-8.2)
[2019-09-01 12:52] VITALS: BP 139/83; PULSE 60; O2SAT 100
--- NOTE | 2019-09-01 12:56 | DI.US.S_ITS ---
PROCEDURE: US OB <= 14 WEEKS FETUS INDICATIONS: CRAMPING; HYPEREMESIS OUTSIDE/PRIOR DATING DATA: Last menstrual period (LMP): 06/27/19. LMP-based estimated date of delivery (CASSIDY): 04/02/20. First dating scan (date and location): 08/31/19. Estimated date of delivery (CASSIDY) from first dating scan: 04/01/20. TECHNIQUE: Real-time scanning was performed of the fetus and maternal pelvic organs, with image documentation. Endovaginal scanning was also performed to better visualize the fetus and maternal ovaries. COMPARISON: [facility], OB <= 14 WEEKS FETUS, 08/31/2019, 4:27. FINDINGS: Embryo: Single intrauterine is identified with heart rate of 197 beats per minute. [place]-rump length measures 2.8 cm corresponding to 9 weeks 4 days. There is incidental note of prominence within the nuchal region. Measurement variability in dating: +/- 4 weeks by LMP, +/- 7 days by mean sac diameter (use before 6 weeks gestation if crown-rump length not able to be measured), +/- 5 days by crown-rump length (up to 8 weeks 6 days gestation), +/- 7 days by crown-rump length (up to 13 weeks 6 days gestation). Maternal organs: Ovaries are unremarkable. Limited images through the kidneys demonstrate no hydronephrosis. IMPRESSION: 1. Single live intrauterine with elevated heart rate. 2. Prominent nuchal space as above. Development of hygroma cannot be excluded. Recommend short interval imaging followup for continued evaluation. Dictated by: Mary Escobar M.D. on 09/01/2019 at 13:39 Approved by: Mary Escobar M.D. on 09/01/2019 at 13:41
[2019-09-01] MEDS: POTASSIUM CHLORIDE 20 MEQ/15 ML UDC 40 MEQ PO (13:36)
--- NOTE | 2019-09-01 14:29 | PC.NURSE ---
up to the bathroom Urine obtained. Patient took the potassium orally and then after 20 minutes she vomited some.
[2019-09-01 14:30] VITALS: BP 125/70; PULSE 76; RESP 17; O2SAT 100
[2019-09-01 14:46] LABS: Bacteria Urine None Seen; RBC Urine None Seen (0-5/HPF); WBC Urine None Seen (0-5/HPF)
[2019-09-01] MEDS: METOCLOPRAMIDE 10 MG/2 ML INJ IV (14:46)
[2019-09-01 14:55] LABS: UR Morphine/Opiate cutoff 300 Negative (Negative); Urine Amphetamines Negative (Negative); Urine Barbiturates Negative (Negative); Urine Benzodiazepines Negative (Negative); Urine Cocaine Negative (Negative); Urine MDMA Negative (Negative); Urine Methadone Negative (Negative); Urine Methamphetamines Negative (Negative); Urine Oxycodone Negative (Negative); Urine Phencyclidine Negative (Negative); Urine Tetrahydrocannabinol Positive (Negative); Urine Tricyclic Antidepressant Negative (Negative)
[2019-09-01 14:57] LABS: Culture Indicated Urine Cult Not Indicated; Urine Comments Microscopic Normal
[2019-09-01 15:52] LABS: Ur Creatinine Normal (Normal); Ur Specific Gravity 1.025 (Normal); Urine pH 9 (Normal)
[2019-09-01 16:02] VITALS: BP 111/62; PULSE 72; O2SAT 99
== END 2019-09-01 16:28 | disposition home or self-care (01) ==
PROVIDERS: Emergency Medicine; Emergency Provider Nurse Practitioner Family; PCP Family Medicine
DX: O21.0 Mild hyperemesis gravidarum (principal); Z3A.09 9 weeks gestation of pregnancy
CPT/HCPCS: 36415; 76801; 76817; 80053; 80305; 81003; 81015; 83690; 85025; 85610; 85730; 96361; 96374; 96375; 96376; 99284; J2405; J2765

== ENCOUNTER 2019-09-03 03:05 | Emergency (ER) | payer OTHER, MEDICAID, SELFPAY ==
[2019-09-03 03:08] VITALS: BP 153/86; PULSE 97; RESP 18; TEMP 36.6; O2SAT 97; BMI 20.8
[2019-09-03] MEDS: SODIUM CHLORIDE 0.9% 1,000 ML 1000 ML IV ×2 (03:20→04:47)
[2019-09-03] MEDS: ONDANSETRON 4 MG/2 ML INJ IV (03:21)
[2019-09-03 03:26] LABS: Add Manual Diff / Slide Review NO; Basophils Absolute Auto 100 /uL (0-100); Basophils Percent Auto 0.4 % (0-2); Eosinophils Absolute Auto 0 /uL (0-450); Eosinophils Percent Auto 0.1 % (2-4); Hematocrit 34.4 % (36-46); Hemoglobin 11.8 g/dL (12.0-16.0); Lymphocytes Absolute Auto 1800 /uL (1100-4500); Lymphocytes Percent Auto 9.8 % (25-40); Mean Corpuscular HGB Conc 34.5 % (30-36); Mean Corpuscular Hemoglobin 30.1 PG (26-34); Mean Corpuscular Volume 87.3 fL (80-100); Monocytes Absolute Auto 1100 /uL (0-900); Monocytes Percent Auto 6.3 % (3-14); Neutrophils Absolute Auto 15000 /uL (1500-7000); Neutrophils Percent Auto 83.4 % (50-75); Platelet Count 511 X10^3/uL (150-400); Red Blood Cell Count 3.94 X10^6/uL (4.0-5.2); Red Cell Distribution Width 12.7 % (11.6-14.8)
[2019-09-03 03:32] LABS: Alanine Aminotransferase 22 IU/L (9-52); Albumin 4.6 g/dL (3.5-5.0); Albumin Globulin Ratio 1.5 (1.0-2.8); Alkaline Phosphatase 42 U/L (38-126); Aspartate Aminotransferase 21 IU/L (14-36); BUN Creatinine Ratio 27.5 (6-22); Bilirubin Total 1.3 mg/dL (0.2-1.3); Blood Urea Nitrogen 11 mg/dL (7-17); Carbon Dioxide 22 mmol/L (22-32); Chloride 100 mmol/L (98-107); Estimated Glomerular Filt Rate > 60.0 mL/min (>60); Glucose 110 mg/dL (70-100); HEMOLYSIS < 15 (0-50); Lipase 33 U/L (23-300); Sodium 138 mmol/L (137-145); Total Protein 7.6 g/dL (6.3-8.2)
--- NOTE | 2019-09-03 03:37 | ED_ITS ---
HPI - Nausea/Vomiting/Diarrhea General Chief complaint: Nausea/Vomiting/Diarrhea Stated complaint: Throwing up blood / 8 weeks preg Time Seen by Provider: 09/03/19 03:08 Source: patient and old records reviewed Mode of arrival: Ambulatory Limitations: no limitations History of Present Illness HPI Narrative: Patient is a 23-year-old female currently 8 weeks presenting with nausea and vomiting. She has actually been seen here twice this week already on August 31 and September 01 for the same. She had ultrasounds at that time blood work and IV fluids. She has Zofran and Reglan at home. She says she started throwing up this evening she thought it was coffee ground like. She denies any vaginal bleeding she has some mild abdominal pain. MD complaint: nausea and vomiting Description of Diarrhea: none Location of pain: diffuse Related Data Home Medications Medication Instructions Recorded Confirmed acyclovir 200 mg capsule 200 mg PO TID 08/14/19 08/20/19 prenat.vits,enid,bjw-[id number] 1 tab PO DAILY 08/14/19 08/20/19 Previous Rx's Medication Instructions Recorded ondansetron 4 mg disintegrating 4 mg PO Q6H PRN #20 tab 08/24/19 tablet metoclopramide HCl [Reglan] 10 mg PO Q6H PRN #10 tab 08/31/19 ondansetron 4 mg PO Q6H PRN #20 tab 09/01/19 promethazine [Phenergan] 25 mg IA Q6H PRN #4 each 09/01/19 metoclopramide HCl 10 mg PO Q6H PRN #10 tab 09/03/19 ondansetron 4 mg PO Q8H #10 tab 09/03/19 potassium chloride 20 meq PO DAILY #3 tab 09/03/19 promethazine 25 mg IA Q6H PRN #5 each 09/03/19 Allergies Allergy/AdvReac Type Severity Reaction Status Date / Time No Known Drug Allergies Allergy Verified 08/31/19 01:55 Review of Systems Review of Systems Narrative: GENERAL: Denies chills, fatigue, malaise, fever, sweats, travel HEENT: Denies sinus pain, ear pain, sore throat, difficulty swallowing, neck pain RESPIRATORY: Denies dyspnea, cough, wheezing, hemoptysis, sputum. CARDIOVASCULAR: Denies chest pain, palpitations, orthopnea, edema GASTROINTESTINAL: See HPI : Denies dysuria, frequency, incontinence, hematuria, urinary retention, flank pain. MUSCULOSKELETAL: Denies weakness, joint pain, or bony pain SKIN: No rash, no erythema, no pruritus NEUROLOGIC: Denies weakness, dizziness, headache, numbness, change in speech, confusion PSYCHIATRIC: No concerning psychosocial issues. 12 point review of systems is negative except for those stated above and HPI Patient History Medical/Surgical History Medical History Family history non-contributory (Acute) Medical history non-contributory (Acute) Social History Smoking Status: Former smoker Family/Social History Social History Smoking Status: Former smoker alcohol intake frequency: other Substance Use Type: does not use Exam Initial Vital Signs Initial Vital Signs: Vital Signs Temperature 97.9 F 09/03/19 03:08 Pulse Rate 97 H 09/03/19 03:08 Respiratory Rate 18 09/03/19 03:08 Blood Pressure 153/86 H 09/03/19 03:08 Pulse Oximetry 97 09/03/19 03:08 GENERAL: Well-appearing, well-nourished and in no acute distress. HEENT: Head atraumatic,EOMI, pupils reactive, CARDIOVASCULAR: Regular rate and rhythm without murmurs, rubs or gallops. RESPIRATORY: Breath sounds equal bilaterally, no wheezes rales or rhonchi. ABDOMEN: Soft, nontender. Normoactive bowel sounds all 4 quadrants. No guarding or rebound. EXTREMITIES: Normal range of motion, no clubbing or edema. Neurovascularly intact NEUROLOGICAL: Alert and oriented x4.Normal gait and speech. Cranial nerves II through XII grossly intact. SKIN: Warm, dry, no laceration, no petechiae, no rashes or lesions. Course Orders Ordered: Discontinued Medications Sodium Chloride (Normal Saline 0.9%) 1,000 mls @ 1,000 mls/hr IV CONT ATIYA Last Infusion: 09/03/19 04:25 Dose: 0 mls/hr Documented by: Admin: 09/03/19 03:20 Dose: 1,000 mls/hr Documented by: ALEXANDER Sodium Chloride (Normal Saline 0.9%) 1,000 mls @ 1,000 mls/hr IV BOLUS ONE Stop: 09/03/19 05:41 Last Infusion: 09/03/19 06:02 Dose: 0 mls/hr Documented by: Admin: 09/03/19 04:47 Dose: 1,000 mls/hr Documented by: ALEXANDER Metoclopramide HCl (Reglan) 10 mg IV NOW ONE Stop: 09/03/19 04:43 Last Admin: 09/03/19 04:48 Dose: 10 mg Documented by: ALEXANDER Ondansetron HCl (Zofran) 4 mg IV NOW ONE Stop: 09/03/19 03:14 Last Admin: 09/03/19 03:21 Dose: 4 mg Documented by: ALEXANDER Vital Signs Vital signs: Vital Signs - 8 hr 09/03/19 03:08 09/03/19 04:25 Temperature 97.9 F Pulse Rate 97 H 73 Respiratory Rate 18 16 Blood Pressure 153/86 H Blood Pressure [Right Arm] 115/58 L Pulse Oximetry 97 100 MDM - Nausea/Vomiting/Diarrhea Lab Data Attestation: I reviewed the patient's lab results. Result diagrams: 09/03/19 03:13 09/03/19 03:13 Labs: Lab Results 09/03/19 09/03/19 Range/Units 03:13 03:13 WBC 18.0 H (4.5-11.0) X10^3/uL RBC 3.94 L (4.0-5.2) X10^6/uL Hgb 11.8 L (12.0-16.0) g/dL Hct 34.4 L (36-46) % MCV 87.3 (80-100) fL MCH 30.1 (26-34) PG MCHC 34.5 (30-36) % RDW 12.7 (11.6-14.8) % Plt Count 511 H (150-400) X10^3/uL Neut % (Auto) 83.4 H (50-75) % Lymph % (Auto) 9.8 L (25-40) % [place] % (Auto) 6.3 (3-14) % Eos % (Auto) 0.1 L (2-4) % Baso % (Auto) 0.4 (0-2) % Neut # (Auto) 89160 H (0955-3668) /uL Lymph # (Auto) 1800 (2517-5103) /uL [place] # (Auto) 1100 H (0-900) /uL Eos # (Auto) 0 (0-450) /uL Baso # (Auto) 100 (0-100) /uL Sodium 138 (137-145) mmol/L Potassium 3.0 L (3.4-5.1) mmol/L Chloride 100 (98-107) mmol/L Carbon Dioxide 22 (22-32) mmol/L BUN 11 (7-17) mg/dL Creatinine 0.40 L (0.52-1.04) mg/dL Estimated GFR > 60.0 (>60) mL/min BUN/Creatinine Ratio 27.5 H (6-22) Glucose 110 H (70-100) mg/dL Calcium 9.0 (8.4-10.2) mg/dL Total Bilirubin 1.3 (0.2-1.3) mg/dL AST 21 (14-36) IU/L ALT 22 (9-52) IU/L Alkaline Phosphatase 42 (38-126) U/L Total Protein 7.6 (6.3-8.2) g/dL Albumin 4.6 (3.5-5.0) g/dL Globulin 3.0 (1.7-4.1) g/dL Albumin/Globulin Ratio 1.5 (1.0-2.8) Lipase 33 (23-300) U/L Urine Dip Bedside Urine Glucose Negative Bedside Urine Bilirubin - Negative Bedside Urine Ketone +++ 80 Urine Specific [place] 1.015 Bedside Urine Occult Blood - Negative Bedside Urine pH 7.0 Bedside Urine Protein - Negative Bedside Urine Urobilinogen - Negative Bedside Urine Nitrite - Negative Bedside Urine Leukocytes - Negative Esterase MDM Narrative Medical decision making narrative: Patient on still vomiting despite Zofran he is given Reglan. Only able to keep down small sips. This is her 3rd visit in 4 days for the same. She is noted to be hypokalemic. DISCUSSED AT LENGTH ADMISSION VERSUS DISCHARGE HOME. PATIENT WOULD LIKE TO TRY AND GO HOME AGAIN. WILL GIVE HER POTASSIUM SUPPLEMENT. Also discussed otherwise to help avoid nausea such as small frequent snacks, applesauce staying hydrated. Discharge Plan Departure Patient Disposition: Home Clinical Impression: Hyperemesis gravidarum, Acute hypokalemia Discharge Date/Time: 09/03/19 06:30 Instructions: Hyperemesis Gravidarum, Clear Liquid Diet Activity Restrictions/Additional Instructions: *You have been diagnosed with hyperemesis gravidarum *What to do: Increase fluid intake with things like Gatorade, Jell-O, popsicle applesauce. Recommend hailey chews, frequent small snacks, bread etc *Continue to take medications as directed--> SENT TO [facility] [place] Zofran 4 mg every 8 hours if needed for nausea vomiting Reglan 10 mg every 6 hours if needed for nausea or vomiting Potassium 20 mEq once a day for the next 3 days take with food *Follow up with your primary care provider in 2-3 days *Return to ER if you should have persistent all vomiting, vaginal bleeding increased abdominal cramping or any new, worsening or concerning symptoms Prescriptions: New potassium chloride 20 mEq tablet,ER particles/crystals 20 meq PO DAILY Qty: 3 RF: 0 ondansetron 4 mg tablet,disintegrating 4 mg PO Q8H Qty: 10 RF: 0 promethazine 25 mg suppository 25 mg IA Q6H PRN (Reason: nausea and vomiting) Qty: 5 RF: 0 metoclopramide HCl 10 mg tablet 10 mg PO Q6H PRN (Reason: nausea and vomiting) Qty: 10 RF: 0 No Action ondansetron 4 mg tablet,disintegrating 4 mg PO Q6H PRN (Reason: Nausea and Vomiting) Qty: 20 RF: 0 prenat.vits,enid,jhf-nsue-zqwyc tablet 1 tab PO DAILY RF: 0 acyclovir 200 mg capsule 200 mg PO TID RF: 0 metoclopramide HCl [Reglan] 10 mg tablet 10 mg PO Q6H PRN (Reason: nausea and vomiting) Qty: 10 RF: 0 ondansetron 4 mg tablet,disintegrating 4 mg PO Q6H PRN (Reason: nausea and vomiting) Qty: 20 RF: 0 promethazine [Phenergan] 25 mg suppository 25 mg IA Q6H PRN (Reason: nausea and vomiting) Qty: 4 RF: 0 Referrals: Jose Miguel Rudolph MD [Physician] - Ellie Espinal DO [Primary Care Provider] - Stand Alone Forms: Work Release Note
[2019-09-03 04:25] VITALS: BP 115/58; PULSE 73; RESP 16; O2SAT 100
[2019-09-03] MEDS: METOCLOPRAMIDE 10 MG/2 ML INJ IV (04:48)
[2019-09-03 06:30] VITALS: BP 115/63; PULSE 56; RESP 18; O2SAT 100
== END 2019-09-03 06:30 | disposition home or self-care (01) ==
PROVIDERS: Emergency Provider Emergency Medicine; PCP Family Medicine
DX: O21.0 Mild hyperemesis gravidarum (principal); E87.6 Hypokalemia; Z3A.08 8 weeks gestation of pregnancy
CPT/HCPCS: 36415; 80053; 81003; 83690; 85025; 96361; 96374; 96375; 99283; 99284; J2405; J2765

== ENCOUNTER → 2019-09-07 08:33 | Outpatient (CLI) | payer OTHER, MEDICAID, SELFPAY | PROVIDERS: PCP Family Medicine; Visit Provider Nurse Practitioner | DX: J02.9 Acute pharyngitis, unspecified (principal) | CPT/HCPCS: 87070; 87077 ==

== ENCOUNTER → 2019-09-17 11:00 | Oncology outpatient (ONC) | payer OTHER, MEDICAID, SELFPAY ==
[2019-09-04] MEDS: LACTATED RINGERS 1,000 ML 1000 ML IV (13:19)
[2019-09-04] MEDS: ONDANSETRON 4 MG/2 ML INJ IV (13:19)
[2019-09-04 13:26] VITALS: BP 116/69; PULSE 63; RESP 16; TEMP 37.2; O2SAT 97
[2019-09-04] MEDS: LACTATED RINGERS 1,000 ML 999 ML IV (14:53)
[2019-09-10 13:59] VITALS: BP 116/63; PULSE 91; RESP 16; TEMP 37.2; O2SAT 99
[2019-09-10] MEDS: ONDANSETRON 4 MG/2 ML INJ IV (14:02)
[2019-09-10] MEDS: LACTATED RINGERS 1,000 ML 999 ML IV ×2 (14:03→15:37)
[2019-09-11] MEDS: LACTATED RINGERS 1,000 ML 999 ML IV ×2 (15:00→16:05)
[2019-09-11] MEDS: ONDANSETRON 4 MG/2 ML INJ IV (15:00)
[2019-09-11 16:03] VITALS: BP 102/67; PULSE 69; RESP 69; TEMP 37.1; O2SAT 96
--- NOTE | 2019-09-11 16:33 | PC.NURSE ---
2nd liter infusing of LR. pt requesting sandwich to eat. denies nausea at this time
[2019-09-12 14:12] VITALS: BP 133/91; PULSE 88; RESP 16; TEMP 36.7; O2SAT 99
[2019-09-12] MEDS: LACTATED RINGERS 1,000 ML 1000 ML IV ×2 (14:15→15:17)
[2019-09-12] MEDS: ONDANSETRON 4 MG/2 ML INJ IV (14:25)
[2019-09-12 15:43] VITALS: BP 112/57; PULSE 71; RESP 16
--- NOTE | 2019-09-12 15:43 | PC.NURSE ---
PATIENT IN FOR FLUIDS AND ZOFRAN WITH ACTIVE EMESIS TODAY. BP SOMEWHAT ELEVATED PATIENT HAD JUST BEEN VOMITING BUT RETURNED TO BASELINE STABLE AFTER IV ZOFRAN TOOK EFFECT. PATIENT COUGHING AND REPORTS HAVING HAD A COLD. LUNGS CLEAR BILATERALLY, PULS REGULAR. PATIENT STATES FEELING BETTER AFTER THE FIRST BAG OF FLUIDS AND ZOFRAN AND THAT THE INFUSIONS HAVE BEEN HELPING HER. SHE ALSO DID NOT COUGH REMAINDER OF STAY AFTER EMESIS STOPPED. SHE WAS ADVISED TO START TAKING HER PO ZOFRAN AT 8PM TONIGHT Q 6 HOURS ORDERED EVEN IF SHE STARTS TO FEEL BETTER IN BETWEEN. ALSO ADVISED THAT IT CAN CAUSE CONSTIPATION AND TO KEEP UP FLUID INTAKE AND POSSIBLY USE STOOL SOFTENERS.
[2019-09-13] MEDS: ONDANSETRON 4 MG/2 ML INJ IV (14:00)
[2019-09-13] MEDS: LACTATED RINGERS 1,000 ML 1000 ML IV (14:01)
[2019-09-13 14:09] VITALS: BP 102/63; PULSE 85; RESP 16; TEMP 37.1; O2SAT 100
[2019-09-14] MEDS: LACTATED RINGERS 1,000 ML 1000 ML IV (11:12)
[2019-09-14 11:13] VITALS: BP 105/58; PULSE 60; RESP 16; TEMP 37; O2SAT 100
[2019-09-14] MEDS: ONDANSETRON 4 MG/2 ML INJ IV (11:24)
--- NOTE | 2019-09-14 12:16 | PC.NURSE ---
PATIENT REPORTS HASN'T HAD EMESIS SINCE 0900. ABLE TO EAT 1/2 EGG SALAD SAND, POPSCICLE, ICE CHIPS AND STRING CHEESE PRIOR TO END OF TRANSFUSION.
[2019-09-16] MEDS: ONDANSETRON 4 MG/2 ML INJ IV (11:20)
[2019-09-16] MEDS: LACTATED RINGERS 1,000 ML 1000 ML IV (11:20)
[2019-09-16 11:30] VITALS: BP 120/74; PULSE 80; RESP 14; O2SAT 100
--- NOTE | 2019-09-16 11:34 | PC.NURSE ---
New IV inserted to left wrist, pt reports d/c'd previous IV to right forearm at home due to discomfort. Denies nausea at this time. Cereal and water provided, tolerating well.
[2019-09-17] MEDS: ONDANSETRON 4 MG/2 ML INJ IV (11:13)
[2019-09-17] MEDS: LACTATED RINGERS 1,000 ML 1000 ML IV (11:13)
[2019-09-17 11:14] VITALS: BP 123/61; PULSE 67; RESP 16; TEMP 36.9; O2SAT 100
== END ==
PROVIDERS: PCP Family Medicine; Visit Provider Family Medicine
DX: O21.8 Other vomiting complicating pregnancy (principal)
CPT/HCPCS: 36415; 96360; 96361; 96374; 96375; J2405

== ENCOUNTER 2022-04-28 19:05 | Emergency (ER) | payer SELFPAY ==
[2022-04-28 19:16] VITALS: BP 149/73; PULSE 61; RESP 18; TEMP 36.6; O2SAT 98; BMI 19.6
--- NOTE | 2022-04-28 21:22 | ED_ITS ---
HPI - Nausea/Vomiting/Diarrhea General Chief complaint: Nausea/Vomiting/Diarrhea Stated complaint: FOOD POISONING Time Seen by Provider: 04/28/22 21:22 Source: patient Mode of arrival: Ambulatory History of Present Illness HPI Narrative: 26-year-old female former smoker with noncontributory medical history presents with a chief complaint of multiple episodes of nausea, vomiting and diarrhea over the course of the day. She started feeling ill after eating at a taco truck yesterday. She denies any blood in her stool and has had no fever or chills. She feels weak and lightheaded and has been able to produce a urine sample. Denies any chest pain or shortness of breath. She has crampy abdominal pain that seems to improve after having a loose stool and then build again. She denies any recent travel or use of antibiotics. She had taken some Zofran at home without relief Related Data Previous Rx's Medication Instructions Recorded ondansetron 4 mg disintegrating 4 mg PO TID-QID PRN #10 tab 04/28/22 tablet pantoprazole 40 mg tablet,delayed 40 mg PO DAILY #30 tab 04/28/22 release (Protonix) promethazine 12.5 mg rectal 12.5 mg DC Q4-6H PRN #12 each 04/28/22 suppository Allergies Allergy/AdvReac Type Severity Reaction Status Date / Time No Known Drug Allergies Allergy Verified 11/08/19 16:02 Review of Systems Review of Systems Narrative: GENERAL: See HPI HEENT: Denies sinus pain, ear pain, sore throat, difficulty swallowing, dizziness. RESPIRATORY: Denies dyspnea, cough, wheezing, hemoptysis, sputum. CARDIOVASCULAR: Denies chest pain, palpitations, orthopnea, edema, GASTROINTESTINAL: See HPI : Denies dysuria, frequency, incontinence, hematuria, urinary retention. MUSCULOSKELETAL: denies weakness, joint pain, or bony pain SKIN: Denies rash, skin lesions, or other NEUROLOGIC: Denies weakness, headache, numbness, change in speech, confusion, seizures, incoordination. PSYCHIATRIC: No concerning psychosocial issues. 12 point review of systems is negative except for those stated above Patient History Medical History Family history non-contributory Medical history non-contributory Seasonal allergies Surgical History H/O wisdom tooth extraction Family History Mother Asthma Breast lump in female Family/Other Breast cancer Father Hypertension Social History marital status: unmarried,single Smoking Status: Former smoker Smoking Status: Former smoker alcohol intake frequency: other Substance Use Type: marijuana Exam Narrative Exam Narrative: GENERAL: [26 year old patient appears stated age. Well-developed patient, in mild distress. HEAD: Atraumatic. Normocephalic. EYES: Pupils equal round and reactive. Extraocular motions intact. No scleral icterus. No injection or drainage. ENT: Dry mucous membranes Nose without bleeding, purulent drainage. Throat without erythema, tonsillar hypertrophy or exudate. Airway patent. NECK: Trachea midline. Non tender CARDIOVASCULAR: Regular rate and rhythm without murmurs, gallops, or rubs. RESPIRATORY: Clear to auscultation. Breath sounds equal bilaterally. No wheezes, rales, or rhonchi. GASTROINTESTINAL: Abdomen soft, non-tender, nondistended. Increased bowel sounds throughout EXTREMITIES: No edema or joint tenderness. BACK: Nontender without deformity or crepitance. No flank tenderness. NEURO: AOx3. SKIN: No rash or erythema of visible areas Initial Vital Signs Initial Vital Signs: Vital Signs Temperature 97.9 F 04/28/22 19:16 Pulse Rate 61 04/28/22 19:16 Respiratory Rate 18 04/28/22 19:16 Blood Pressure 149/73 H 04/28/22 19:16 Pulse Oximetry 98 04/28/22 19:16 Course Orders Ordered: ED Orders 04/28/22 21:35 Complete Blood Count AUTO DIFF Stat Comprehensive Metabolic Panel Stat Discontinued Medications Sodium Chloride (Normal Saline 0.9%) 1,000 mls @ 1,000 mls/hr IV BOLUS ONE Stop: 04/28/22 20:20 Last Admin: 04/28/22 22:33 Dose: Not Given Documented by: KAILYN Sodium Chloride (Normal Saline 0.9%) 1,000 mls @ 1,000 mls/hr IV BOLUS ONE Stop: 04/28/22 22:25 Last Infusion: 04/28/22 23:20 Dose: 0 mls/hr Documented by: Admin: 04/28/22 21:38 Dose: 1,000 mls/hr Documented by: KAILYN Ondansetron HCl (Ondansetron 4 Mg/2 Ml Inj) 4 mg IV NOW ONE Stop: 04/28/22 19:22 Last Admin: 04/28/22 22:32 Dose: Not Given Documented by: KAILYN Ondansetron HCl (Ondansetron 4 Mg/2 Ml Inj) 4 mg IV NOW ONE Stop: 04/28/22 21:27 Last Admin: 04/28/22 21:36 Dose: 4 mg Documented by: KAILYN Pantoprazole Sodium (Pantoprazole 40 Mg Vial) 40 mg IV NOW ONE Stop: 04/28/22 21:27 Last Admin: 04/28/22 21:38 Dose: 40 mg Documented by: KAILYN Reevaluation(s) Reevaluation #1: Patient has significant improvement after above-stated therapies Vital Signs Vital signs: Vital Signs - 8 hr 04/28/22 19:16 04/28/22 23:21 Temperature 97.9 F Pulse Rate 61 54 L Respiratory Rate 18 18 Blood Pressure 149/73 H 122/59 L Pulse Oximetry 98 98 MDM - Nausea/Vomiting/Diarrhea Lab Data Result diagrams: 04/28/22 21:35 04/28/22 21:35 Labs: Lab Results 04/28/22 04/28/22 Range/Units 21:35 21:35 WBC 15.5 H (4.5-11.0) X10^3/uL RBC 3.80 L (4.0-5.2) X10^6/uL Hgb 11.7 L (12.0-16.0) g/dL Hct 33.8 L (36-46) % MCV 89.0 (80-100) fL MCH 30.7 (26-34) PG MCHC 34.5 (30-36) % RDW 13.0 (11.6-14.8) % Plt Count 444 H (150-400) X10^3/uL Neut % (Auto) 96.0 H (50-75) % Lymph % (Auto) 1.6 L (25-40) % [place] % (Auto) 1.9 L (3-14) % Eos % (Auto) 0.0 L (2-4) % Baso % (Auto) 0.5 (0-2) % Neut # (Auto) 22577 H (5995-7875) /uL Lymph # (Auto) 200 L (7837-4664) /uL [place] # (Auto) 300 (0-900) /uL Eos # (Auto) 0 (0-450) /uL Baso # (Auto) 100 (0-100) /uL Sodium 140 (137-145) mmol/L Potassium 3.3 L (3.4-5.1) mmol/L Chloride 100 (98-107) mmol/L Carbon Dioxide 24 (22-32) mmol/L BUN 20 H (7-17) mg/dL Creatinine 0.60 (0.52-1.04) mg/dL Estimated GFR > 60 (>60) mL/min BUN/Creatinine Ratio 33.3 H (6-22) Glucose 205 H (70-100) mg/dL Calcium 9.1 (8.4-10.2) mg/dL Total Bilirubin 2.1 H (0.2-1.3) mg/dL AST 30 (14-36) IU/L ALT 30 (<35) IU/L Alkaline Phosphatase 38 (38-126) U/L Total Protein 8.5 H (6.3-8.2) g/dL Albumin 5.0 (3.5-5.0) g/dL Globulin 3.5 (1.7-4.1) g/dL Albumin/Globulin Ratio 1.4 (1.0-2.8) MDM Narrative Medical decision making narrative: Patient with 24 hours of nausea, vomiting and diarrhea after which he thinks was likely some bad food at a taco truck. She has cramping pain, that is more colicky nature and without classic or clear provocation or palliation. She has had no fever or chills, recent travel or use of antibiotics. History and physical are reassuring, labs are unremarkable and response to therapies is as expected. She feels much better, is tolerating orals and pain is well controlled. Return precautions given and questions answered to her apparent satisfaction Discharge Plan Departure Patient Disposition: Home Clinical Impression: Vomiting and diarrhea Instructions: DI for Dehydration -- Adult, DI for Vomiting -- Adult Activity Restrictions/Additional Instructions: *You have been diagnosed with [nausea, vomiting and diarrhea, likely from food- borne illness as we discussed * As we discussed your history and physical exam as well as labs and imaging are very reassuring. There is no evidence of any severe diagnoses that would require a specific or immediate intervention. *What to do: *Please continue to take your regular medications as directed. [x ] New medication prescriptions sent to your pharmacy: [ [facility]] *Please follow up with your primary care provider in 2-3 days, call for an appointment. Let them know you were seen in the Emergency Department and that we ask that you be seen in follow up. We will electronically transmit a record of today's note if your PCP is in our system *Please consider a clear liquid diet for the next 24-48 hours and then slowly advance to regular as tolerated. Also, try to avoid alcohol, nicotine, caffeine, spicy, acidic or fatty foods as this may worsen your symptoms *If you do not have a primary care provider please contact the [facility] Resource line at [phone]. They will ask some questions about your medical history and help get you set up with a doctor in the community. *Return to Emergency Department if you should have any new, worsening or concerning symptoms, such as [fever greater than 101 F, shaking chills, wors ening pain, persistent vomiting or other bothersome symptoms] Prescriptions: New promethazine 12.5 mg suppository 12.5 mg DC Q4-6H PRN (Reason: nausea and vomiting) Qty: 12 0RF pantoprazole [Protonix] 40 mg tablet,delayed release (DR/EC) 40 mg PO DAILY Qty: 30 0RF ondansetron 4 mg tablet,disintegrating 4 mg PO TID-QID PRN (Reason: nausea and vomiting) Qty: 10 0RF Referrals: Ellie Espinal DO [Primary Care Provider] - Visit Report Forms: Patient Portal/API
[2022-04-28] MEDS: ONDANSETRON 4 MG/2 ML INJ IV (21:36)
[2022-04-28] MEDS: PANTOPRAZOLE 40 MG VIAL IV (21:38)
[2022-04-28] MEDS: SODIUM CHLORIDE 0.9% 1,000 ML 1000 ML IV (21:38)
[2022-04-28 21:45] LABS: Add Manual Diff / Slide Review NO; Basophils Absolute Auto 100 /uL (0-100); Basophils Percent Auto 0.5 % (0-2); Eosinophils Absolute Auto 0 /uL (0-450); Hematocrit 33.8 % (36-46); Hemoglobin 11.7 g/dL (12.0-16.0); Lymphocytes Absolute Auto 200 /uL (1100-4500); Lymphocytes Percent Auto 1.6 % (25-40); Mean Corpuscular HGB Conc 34.5 % (30-36); Mean Corpuscular Hemoglobin 30.7 PG (26-34); Monocytes Absolute Auto 300 /uL (0-900); Monocytes Percent Auto 1.9 % (3-14); Neutrophils Absolute Auto 14900 /uL (1500-7000); Platelet Count 444 X10^3/uL (150-400); White Blood Cell Count 15.5 X10^3/uL (4.5-11.0)
[2022-04-28 21:57] LABS: Albumin Globulin Ratio 1.4 (1.0-2.8); Alkaline Phosphatase 38 U/L (38-126); Aspartate Aminotransferase 30 IU/L (14-36); BUN Creatinine Ratio 33.3 (6-22); Bilirubin Total 2.1 mg/dL (0.2-1.3); Blood Urea Nitrogen 20 mg/dL (7-17); Calcium 9.1 mg/dL (8.4-10.2); Carbon Dioxide 24 mmol/L (22-32); Chloride 100 mmol/L (98-107); Estimated Glomerular Filt Rate > 60 mL/min (>60); Globulin 3.5 g/dL (1.7-4.1); Glucose 205 mg/dL (70-100); HEMOLYSIS < 15 (0-50); Potassium 3.3 mmol/L (3.4-5.1); Sodium 140 mmol/L (137-145); Total Protein 8.5 g/dL (6.3-8.2)
[2022-04-28 22:03] LABS: Alanine Aminotransferase 30 IU/L (<35)
[2022-04-28 23:21] VITALS: BP 122/59; PULSE 54; RESP 18; O2SAT 98
== END 2022-04-28 23:24 | disposition home or self-care (01) ==
PROVIDERS: Emergency Provider Emergency Medicine; PCP Family Medicine
DX: R11.10 Vomiting, unspecified (principal); R19.7 Diarrhea, unspecified
CPT/HCPCS: 36415; 80053; 85025; 96361; 96374; 96375; 99284; C9113; J2405

== ENCOUNTER 2022-10-20 03:09 | Emergency (ER) | payer SELFPAY ==
[2022-10-20 03:15] VITALS: BP 137/91; PULSE 66; RESP 18; TEMP 36.7; O2SAT 98; BMI 18.8
--- NOTE | 2022-10-20 03:25 | ED_ITS ---
HPI - Nausea/Vomiting/Diarrhea General Chief complaint: Nausea/Vomiting/Diarrhea Stated complaint: throwing up x3 days Time Seen by Provider: 10/20/22 03:18 Source: patient Mode of arrival: Ambulatory History of Present Illness HPI Narrative: 26-year-old female former smoker with history of gastric ulcer and hyperemesis presents with a chief complaint of multiple episodes of nausea and vomiting since Tuesday. She states that she is feeling a bit dizzy and lightheaded now and is convinced that she is dehydrated. She is been through this before and feels the same. She has some generalized abdominal cramping that seems to improve with nausea. She denies any fever chills and has no runny nose, sore throat or cough. She denies chest pain. She has had a few episodes of diarrhea. She denies dysuria, frequency or urgency. She denies vaginal bleeding or discharge. She is had no recent antibiotics, bad food or exposure to other ill persons Related Data Previous Rx's Medication Instructions Recorded ondansetron 4 mg disintegrating 4 mg PO TID-QID PRN nausea and 04/28/22 tablet vomiting #10 tabs pantoprazole 40 mg tablet,delayed 40 mg PO DAILY #30 tabs 04/28/22 release (Protonix) promethazine 12.5 mg rectal 12.[address] Q4-6H PRN nausea and 04/28/22 suppository vomiting #12 ea ondansetron 4 mg disintegrating 4 mg PO TID-QID PRN nausea and 10/20/22 tablet vomiting #10 tabs pantoprazole 40 mg tablet,delayed 40 mg PO DAILY #30 tabs 10/20/22 release (Protonix) promethazine 25 mg rectal [address] Q4-6H PRN nausea and 10/20/22 suppository vomiting #12 ea Allergies Allergy/AdvReac Type Severity Reaction Status Date / Time No Known Drug Allergies Allergy Verified 11/08/19 16:02 Review of Systems Review of Systems Narrative: GENERAL:See HPI HEENT: Denies sinus pain, ear pain, sore throat, difficulty swallowing, dizziness. RESPIRATORY: Denies dyspnea, cough, wheezing, hemoptysis, sputum. CARDIOVASCULAR: Denies chest pain, palpitations, orthopnea, edema, GASTROINTESTINAL: See HPI : Denies dysuria, frequency, incontinence, hematuria, urinary retention. MUSCULOSKELETAL: denies weakness, joint pain, or bony pain SKIN: Denies rash, skin lesions, or other NEUROLOGIC: Denies weakness, headache, numbness, change in speech, confusion, seizures, incoordination. PSYCHIATRIC: No concerning psychosocial issues. 12 point review of systems is negative except for those stated above Patient History Medical History Family history non-contributory Medical history non-contributory Seasonal allergies Surgical History H/O wisdom tooth extraction Family History Mother Asthma Breast lump in female Family/Other Breast cancer Father Hypertension Social History marital status: unmarried,single Smoking Status: Former smoker Smoking Status: Former smoker alcohol intake frequency: other Substance Use Type: marijuana Exam Narrative Exam Narrative: GENERAL: [26] year old patient appears stated age. Well-developed patient, in mild distress. HEAD: Atraumatic. Normocephalic. EYES: Pupils equal round and reactive. Extraocular motions intact. No scleral icterus. No injection or drainage. ENT: Dry mucous membranes Nose without bleeding, purulent drainage. Throat without erythema, tonsillar hypertrophy or exudate. Airway patent. NECK: Trachea midline. Non tender CARDIOVASCULAR: Regular rate and rhythm without murmurs, gallops, or rubs. RESPIRATORY: Clear to auscultation. Breath sounds equal bilaterally. No wheezes, rales, or rhonchi. GASTROINTESTINAL: Abdomen soft, non-tender, nondistended. EXTREMITIES: No edema or joint tenderness. BACK: Nontender without deformity or crepitance. No flank tenderness. NEURO: AOx3. SKIN: No rash or erythema of visible areas Initial Vital Signs Initial Vital Signs: Vital Signs Temperature 98.1 F 10/20/22 03:15 Pulse Rate 66 10/20/22 03:15 Respiratory Rate 18 10/20/22 03:15 Blood Pressure 137/91 H 10/20/22 03:15 Pulse Oximetry 98 10/20/22 03:15 Oxygen Delivery Method 10/20/22 03:15 Course Orders Ordered: ED Orders 10/20/22 03:19 Complete Blood Count AUTO DIFF Stat Comprehensive Metabolic Panel Stat Lipase Stat Magnesium Stat 10/20/22 03:53 Covid-19 + FLU A/B + RSV - PCR Stat Sodium Chloride (Normal Saline 0.9%) 1,000 mls @ 1,000 mls/hr IV BOLUS ONE Stop: 10/20/22 05:20 Last Admin: 10/20/22 04:26 Dose: 1,000 mls/hr Discontinued Medications Sodium Chloride (Normal Saline 0.9%) 1,000 mls @ 1,000 mls/hr IV BOLUS ONE Stop: 10/20/22 04:24 Last Admin: 10/20/22 03:33 Dose: 1,000 mls/hr Documented By: OLIVIA Ondansetron HCl (Ondansetron 4 Mg/2 Ml Inj) 4 mg IV NOW ONE Stop: 10/20/22 03:26 Last Admin: 10/20/22 03:34 Dose: 4 mg Documented By: OLIVIA Ondansetron HCl (Ondansetron 4 Mg Odt Prepack) 1 bottle MISC SEEINSTR ONE Stop: 10/20/22 04:22 Last Admin: 10/20/22 04:26 Dose: 1 bottle Pantoprazole Sodium (Pantoprazole 40 Mg Vial) 40 mg IV NOW ONE Stop: 10/20/22 03:26 Last Admin: 10/20/22 03:34 Dose: 40 mg Documented By: OLIVIA Vital Signs Vital signs: Vital Signs - 8 hr 10/20/22 03:15 Temperature 98.1 F Pulse Rate 66 Respiratory Rate 18 Blood Pressure 137/91 H Pulse Oximetry 98 Oxygen Delivery Method Room Air MDM - Nausea/Vomiting/Diarrhea Lab Data Result diagrams: 10/20/22 03:19 10/20/22 03:19 Labs: Lab Results 10/20/22 10/20/22 10/20/22 Range/Units 03:19 03:19 03:53 WBC 12.0 H (4.5-11.0) X10^3/uL RBC 4.27 (4.0-5.2) X10^6/uL Hgb 12.7 (12.0-16.0) g/dL Hct 37.8 (36-46) % MCV 88.6 (80-100) fL MCH 29.8 (26-34) PG MCHC 33.6 (30-36) % RDW 12.8 (11.6-14.8) % Plt Count 408 H (150-400) X10^3/uL Neut % (Auto) 85.1 H (50-75) % Lymph % (Auto) 5.3 L (25-40) % [place] % (Auto) 9.3 (3-14) % Eos % (Auto) 0.2 L (2-4) % Baso % (Auto) 0.1 (0-2) % Neut # (Auto) 86223 H (5537-4740) /uL Lymph # (Auto) 600 L (2575-0539) /uL [place] # (Auto) 1100 H (0-900) /uL Eos # (Auto) 0 (0-450) /uL Baso # (Auto) 0 (0-100) /uL Sodium 139 (137-145) mmol/L Potassium 3.4 (3.4-5.1) mmol/L Chloride 99 (98-107) mmol/L Carbon Dioxide 27 (22-32) mmol/L BUN 24 H (7-17) mg/dL Creatinine 0.59 (0.52-1.04) mg/dL Estimated GFR > 60 (>60) mL/min BUN/Creatinine Ratio 40.7 H (6-22) Glucose 134 H (70-100) mg/dL Calcium 9.4 (8.4-10.2) mg/dL Magnesium 1.9 (1.6-2.3) mg/dL Total Bilirubin 1.2 (0.2-1.3) mg/dL AST 30 (14-36) IU/L ALT 26 (<35) IU/L Alkaline Phosphatase 42 (38-126) U/L Total Protein 8.3 H (6.3-8.2) g/dL Albumin 4.8 (3.5-5.0) g/dL Globulin 3.5 (1.7-4.1) g/dL Albumin/Globulin Ratio 1.4 (1.0-2.8) Lipase 45 (23-300) U/L SARS-CoV-2 (PCR) Negative (Negative) Influenza A (RT-PCR) Flu a negative (NEGATIVE) Influenza B (RT-PCR) Flu b negative (NEGATIVE) RSV (PCR) Negative (Negative) MDM Narrative Medical decision making narrative: 26-year-old female nonsmoker with history of prior episodes of hyperemesis and cyclic vomiting presents with about 3 days of persistent vomiting and generally feeling unwell. Differential diagnosis includes hyperemesis, COVID, influenza versus other. She has reassuring vital signs and shows significant improvement with above-stated therapies including Protonix and Zofran. She initially tolerates ice chips without difficulty and then an oral challenge of liquids. Slight bump and white blood cells likely due to vomiting. Electrolytes and kidney function within normal limits. Patient was stable vital signs, expected response to therapies. Return precautions discussed, questions answered to her apparent satisfaction, prescription sent to the pharmacy of her choice Discharge Plan Departure Patient Disposition: Home Clinical Impression: Vomiting, Acute dehydration Instructions: DI for Dehydration -- Adult, DI for Vomiting -- Adult Activity Restrictions/Additional Instructions: *You have been diagnosed with [nausea, vomiting and mild dehydration] *What to do: *Please continue to take your regular medications as directed. [x ] New medication prescriptions sent to your pharmacy: [ [facility]] [ ] New medication written as a paper prescription [ ] No new medications given *Please follow up with your primary care provider in 2-3 days, call for an appointment. Let them know you were seen in the Emergency Department and that we ask that you be seen in follow up. We will electronically transmit a record of today's note if your PCP is in our system * as we discussed, please consider a clear liquid diet for the next 24 hours and then slowly advance as tolerated *Return to Emergency Department if you should have any new, worsening or concerning symptoms, such as [fever greater than 101 F, shaking chills, worsening pain, persistent vomiting or other bothersome symptoms] Prescriptions: New promethazine 25 mg suppository [address] Q4-6H PRN (Reason: nausea and vomiting) Qty: 12 0RF pantoprazole [Protonix] 40 mg tablet,delayed release (DR/EC) 40 mg PO DAILY Qty: 30 0RF ondansetron 4 mg tablet,disintegrating 4 mg PO TID-QID PRN (Reason: nausea and vomiting) Qty: 10 0RF No Action promethazine 12.5 mg suppository 12.[address] Q4-6H PRN (Reason: nausea and vomiting) Qty: 12 0RF pantoprazole [Protonix] 40 mg tablet,delayed release (DR/EC) 40 mg PO DAILY Qty: 30 0RF ondansetron 4 mg tablet,disintegrating 4 mg PO TID-QID PRN (Reason: nausea and vomiting) Qty: 10 0RF Referrals: Ellie Espinal DO [Primary Care Provider] -
[2022-10-20 03:30] LABS: Add Manual Diff / Slide Review NO; Basophils Absolute Auto 0 /uL (0-100); Basophils Percent Auto 0.1 % (0-2); Eosinophils Absolute Auto 0 /uL (0-450); Eosinophils Percent Auto 0.2 % (2-4); Hematocrit 37.8 % (36-46); Hemoglobin 12.7 g/dL (12.0-16.0); Lymphocytes Absolute Auto 600 /uL (1100-4500); Lymphocytes Percent Auto 5.3 % (25-40); Mean Corpuscular HGB Conc 33.6 % (30-36); Mean Corpuscular Hemoglobin 29.8 PG (26-34); Mean Corpuscular Volume 88.6 fL (80-100); Monocytes Absolute Auto 1100 /uL (0-900); Monocytes Percent Auto 9.3 % (3-14); Neutrophils Absolute Auto 10200 /uL (1500-7000); Neutrophils Percent Auto 85.1 % (50-75); Platelet Count 408 X10^3/uL (150-400); Red Blood Cell Count 4.27 X10^6/uL (4.0-5.2); Red Cell Distribution Width 12.8 % (11.6-14.8)
[2022-10-20] MEDS: SODIUM CHLORIDE 0.9% 1,000 ML 1000 ML IV ×2 (03:33→04:26)
[2022-10-20] MEDS: PANTOPRAZOLE 40 MG VIAL IV (03:34)
[2022-10-20] MEDS: ONDANSETRON 4 MG/2 ML INJ IV (03:34)
[2022-10-20 03:39] LABS: Alanine Aminotransferase 26 IU/L (<35); Albumin 4.8 g/dL (3.5-5.0); Albumin Globulin Ratio 1.4 (1.0-2.8); Alkaline Phosphatase 42 U/L (38-126); Aspartate Aminotransferase 30 IU/L (14-36); BUN Creatinine Ratio 40.7 (6-22); Bilirubin Total 1.2 mg/dL (0.2-1.3); Blood Urea Nitrogen 24 mg/dL (7-17); Calcium 9.4 mg/dL (8.4-10.2); Carbon Dioxide 27 mmol/L (22-32); Chloride 99 mmol/L (98-107); Estimated Glomerular Filt Rate > 60 mL/min (>60); Globulin 3.5 g/dL (1.7-4.1); Glucose 134 mg/dL (70-100); HEMOLYSIS < 15 (0-50); Lipase 45 U/L (23-300); Magnesium 1.9 mg/dL (1.6-2.3); Potassium 3.4 mmol/L (3.4-5.1); Sodium 139 mmol/L (137-145); Total Protein 8.3 g/dL (6.3-8.2)
[2022-10-20] MEDS: ONDANSETRON 4 MG ODT PREPACK 1 BOTTLE MISC (04:26)
--- NOTE | 2022-10-20 04:29 | PC.NURSE ---
Patient given ice chips for PO challenge.
[2022-10-20 04:35] LABS: Influenza A - CEPHEID Flu A NEGATIVE (NEGATIVE); Influenza B - CEPHEID Flu B NEGATIVE (NEGATIVE); Respiratory Syncytial Virus Negative (Negative)
[2022-10-20 04:36] LABS: COVID-19 CEPHEID 4-PLEX PCR Negative (Negative)
--- NOTE | 2022-10-20 05:02 | PC.NURSE ---
Patient given apple juice
[2022-10-20 05:10] VITALS: BP 132/78; PULSE 75; RESP 16; O2SAT 100
== END 2022-10-20 05:12 | disposition home or self-care (01) ==
PROVIDERS: Emergency Provider Emergency Medicine; PCP Family Medicine
DX: R11.2 Nausea with vomiting, unspecified (principal); E86.0 Dehydration; Z20.822 Contact with and (suspected) exposure to COVID-19
CPT/HCPCS: 0241U; 36415; 80053; 83690; 83735; 85025; 96361; 96374; 96375; 99284; C9113; J2405

== ENCOUNTER 2024-06-30 12:03 | Emergency (ER) | payer OTHER, MEDICAID, SELFPAY ==
[2024-06-30] VITALS (7 sets, daily range): BP systolic 127–135; BP diastolic 72–79; PULSE 52–84; RESP 16–17; TEMP 36.1; O2SAT 94–100; BMI 18.8
[2024-06-30] MEDS: SODIUM CHLORIDE 0.9% 1,000 ML 1000 ML IV ×2 (12:29→13:21)
[2024-06-30] MEDS: ONDANSETRON 4 MG/2 ML INJ IV (12:29)
[2024-06-30 12:37] LABS: Add Manual Diff / Slide Review NO; Basophils Absolute Auto 100 /uL (0-100); Basophils Percent Auto 0.4 % (0-2); Eosinophils Absolute Auto 0 /uL (0-450); Eosinophils Percent Auto 0.1 % (2-4); Hematocrit 35.6 % (36-46); Hemoglobin 11.9 g/dL (12.0-16.0); Lymphocytes Absolute Auto 1900 /uL (1100-4500); Lymphocytes Percent Auto 10.1 % (25-40); Mean Corpuscular HGB Conc 33.5 % (30-36); Mean Corpuscular Hemoglobin 30.1 PG (26-34); Mean Corpuscular Volume 89.7 fL (80-100); Monocytes Absolute Auto 600 /uL (0-900); Monocytes Percent Auto 3.5 % (3-14); Neutrophils Absolute Auto 15800 /uL (1500-7000); Neutrophils Percent Auto 85.9 % (50-75); Platelet Count 547 X10^3/uL (150-400); Red Blood Cell Count 3.97 X10^6/uL (4.0-5.2); Red Cell Distribution Width 12.6 % (11.6-14.8); White Blood Cell Count 18.4 X10^3/uL (4.5-11.0)
[2024-06-30 12:46] LABS: Alanine Aminotransferase 18 IU/L (<35); Albumin 4.7 g/dL (3.5-5.0); Albumin Globulin Ratio 1.5 (1.0-2.8); Alkaline Phosphatase 37 U/L (38-126); Aspartate Aminotransferase 18 IU/L (14-36); BUN Creatinine Ratio 23.2 (6-22); Bilirubin Total 1.3 mg/dL (0.2-1.3); Blood Urea Nitrogen 13 mg/dL (7-17); Calcium 9.3 mg/dL (8.4-10.2); Carbon Dioxide 23 mmol/L (22-32); Chloride 103 mmol/L (98-107); Estimated Glomerular Filt Rate > 60 mL/min (>60); Globulin 3.2 g/dL (1.7-4.1); Glucose 145 mg/dL (70-100); HEMOLYSIS < 15 (0-50); Potassium 3.3 mmol/L (3.4-5.1); Sodium 138 mmol/L (137-145); Total Protein 7.9 g/dL (6.3-8.2)
[2024-06-30 12:55] LABS: COVID19 -Nasal RAPID Negative (Negative)
--- NOTE | 2024-06-30 13:03 | ED_ITS ---
HPI - Nausea/Vomiting/Diarrhea General Chief complaint: Nausea/Vomiting/Diarrhea Stated complaint: , cannot keep fluids down Time Seen by Provider: 06/30/24 12:51 Source: patient Mode of arrival: Ambulatory History of Present Illness HPI Narrative: Patient is a 28-year-old female. at unknown dates. She found out she was approximately 5 days ago. Prior to pregnancies ended in an elective . Last procedure was approximately 2 years ago. She is not on vitamins. Has no nausea medication at home. She was having some abdominal discomfort what she thinks that is because of the vomiting. No change in bowel habits. No urinary symptoms. No fevers. No recent travel. Related Data Previous Rx's Medication Instructions Recorded ondansetron 4 mg disintegrating 4 mg PO Q6H PRN nausea and 06/30/24 tablet vomiting #20 tabs vit no.95-ferrous 1 tab PO DAILY #30 tabs 06/30/24 fumarate 28 mg-folic acid 800 mcg tablet Allergies Allergy/AdvReac Type Severity Reaction Status Date / Time No Known Drug Allergies Allergy Verified 06/30/24 12:09 Review of Systems Review of Systems Narrative: See HPI Patient History Medical History Seasonal allergies Medical history non-contributory Family history non-contributory Surgical History H/O wisdom tooth extraction Family History Mother Asthma Breast lump in female Family/Other Breast cancer Father Hypertension Social History marital status: unmarried,single Smoking Status: Former smoker Smoking Status: Former smoker alcohol intake frequency: other Substance Use Type: marijuana Exam Initial Vital Signs Initial Vital Signs: Vital Signs Temperature 97 F L 06/30/24 12:10 Pulse Rate 84 06/30/24 12:10 Respiratory Rate 17 06/30/24 12:10 Blood Pressure 135/78 06/30/24 12:10 Pulse Oximetry 99 06/30/24 12:10 Oxygen Delivery Method Room Air 06/30/24 12:10 Resp Effort & Inspection: normal respiratory effort Auscultation: clear to auscultation bilaterally Cardio Rate: regular rate Rhythm: regular rhythm GI Inspection: non-distended Skin General: no rashes or lesions noted Course Orders Ordered: ED Orders 06/30/24 12:25 COVID19 -Nasal RAPID Stat Complete Blood Count AUTO DIFF Stat Comprehensive Metabolic Panel Stat 06/30/24 13:04 US OB <= 14 weeks fetus Stat Ondansetron HCl (Ondansetron 4 Mg/2 Ml Inj) 4 mg IV NOW PRN PRN Reason: Nausea And Vomiting Last Admin: 06/30/24 12:29 Dose: 4 mg Documented By: DANUTA Ondansetron HCl (Ondansetron 4 Mg Odt) 4 mg PO NOW PRN PRN Reason: Nausea And Vomiting Discontinued Medications Sodium Chloride (Normal Saline 0.9%) 1,000 mls @ 1,000 mls/hr IV BOLUS ONE Stop: 06/30/24 13:17 Last Infusion: 06/30/24 13:07 Dose: Infused Documented By: Admin: 06/30/24 12:29 Dose: 1,000 mls/hr Documented By: DANUTA Sodium Chloride (Normal Saline 0.9%) 1,000 mls @ 1,000 mls/hr IV BOLUS ONE Stop: 06/30/24 14:02 Last Infusion: 06/30/24 14:19 Dose: Infused Documented By: Admin: 06/30/24 13:21 Dose: 1,000 mls/hr Documented By: DANUTA Vital Signs Vital signs: Vital Signs - 8 hr 06/30/24 12:10 06/30/24 13:19 06/30/24 13:21 Temperature 97 F L Pulse Rate 84 59 L Respiratory Rate 17 Blood Pressure 135/78 130/79 Pulse Oximetry 99 99 Oxygen Delivery Method Room Air 06/30/24 13:21 06/30/24 13:30 06/30/24 13:31 Temperature Pulse Rate 61 52 L 75 Respiratory Rate Blood Pressure Pulse Oximetry 99 100 100 Oxygen Delivery Method 06/30/24 13:31 Temperature Pulse Rate Respiratory Rate Blood Pressure 127/72 Pulse Oximetry Oxygen Delivery Method MDM - Nausea/Vomiting/Diarrhea Lab Data Attestation: I reviewed the patient's lab results. 06/30/24 12:25 06/30/24 12:25 Labs: Lab Results 06/30/24 Range/Units 12:25 WBC 18.4 H (4.5-11.0) X10^3/uL RBC 3.97 L (4.0-5.2) X10^6/uL Hgb 11.9 L (12.0-16.0) g/dL Hct 35.6 L (36-46) % MCV 89.7 (80-100) fL MCH 30.1 (26-34) PG MCHC 33.5 (30-36) % RDW 12.6 (11.6-14.8) % Plt Count 547 H (150-400) X10^3/uL Neut % (Auto) 85.9 H (50-75) % Lymph % (Auto) 10.1 L (25-40) % [place] % (Auto) 3.5 (3-14) % Eos % (Auto) 0.1 L (2-4) % Baso % (Auto) 0.4 (0-2) % Neut # (Auto) 05924 H (9120-1027) /uL Lymph # (Auto) 1900 (5375-0875) /uL [place] # (Auto) 600 (0-900) /uL Eos # (Auto) 0 (0-450) /uL Baso # (Auto) 100 (0-100) /uL Sodium 138 (137-145) mmol/L Potassium 3.3 L (3.4-5.1) mmol/L Chloride 103 (98-107) mmol/L Carbon Dioxide 23 (22-32) mmol/L BUN 13 (7-17) mg/dL Creatinine 0.56 (0.52-1.04) mg/dL Estimated GFR > 60 (>60) mL/min BUN/Creatinine Ratio 23.2 H (6-22) Glucose 145 H (70-100) mg/dL Calcium 9.3 (8.4-10.2) mg/dL Total Bilirubin 1.3 (0.2-1.3) mg/dL AST 18 (14-36) IU/L ALT 18 (<35) IU/L Alkaline Phosphatase 37 L (38-126) U/L Total Protein 7.9 (6.3-8.2) g/dL Albumin 4.7 (3.5-5.0) g/dL Globulin 3.2 (1.7-4.1) g/dL Albumin/Globulin Ratio 1.5 (1.0-2.8) SARS-CoV-2 (PCR) Negative (Negative) Point of Care Testing Test Results Positive Urine Dip Bedside Urine Glucose Negative Bedside Urine Bilirubin - Negative Bedside Urine Ketone +/- 5 Urine Specific [place] 1.015 Bedside Urine Occult Blood - Negative Bedside Urine pH 7.0 Bedside Urine Protein - Negative Bedside Urine Urobilinogen - Negative Bedside Urine Nitrite - Negative Bedside Urine Leukocytes - Negative Esterase Imaging Data US - OB: Radiologist's Impression: PROCEDURE: US OB <= 14 WEEKS FETUS INDICATIONS: unknown dates with abd pain OUTSIDE/PRIOR DATING DATA: Last menstrual period (LMP): Unknown. LMP-based estimated date of delivery (CASSIDY): Unknown. First dating scan (date and location): None. Estimated date of delivery (CASSIDY) from first dating scan: Unknown. TECHNIQUE: Real-time scanning was performed of the fetus and maternal pelvic organs, with image documentation. Endovaginal scanning was also performed to better visualize the fetus and maternal ovaries. COMPARISON: [facility], OB <= 14 WEEKS FETUS, 09/01/2019, 13:05. FINDINGS: Embryo: There is a intrauterine gestational sac has a pole and yolk sac. There is no subchorionic hemorrhage. Heart rate: 131 Maternal organs: Ovaries normal with a corpus luteal cyst on the right.. IMPRESSION: James intrauterine gestation with measurements correlating with a gestational age of 6 weeks and 6days for an CASSIDY of 02/17/2025. [facility] Narrative Medical decision making narrative: Patient does have leukocytosis however this is most likely because of the vomiting and also potentially because of the . Ultrasound shows intrauterine at 6 weeks and 6 days which she states does sound appropriate. She was not made a decision about whether not she was going to keep this . She was not currently on vitamins. Plan will be to send her home with nausea medication and vitamins and phone numbers for follow-up with OB. She was given return precautions. She expressed understanding and agreement. Discharge Plan Departure Patient Disposition: Home Clinical Impression: Nausea and vomiting during Instructions: Nausea of (Alternative Therapy) Activity Restrictions/Additional Instructions: I do recommend that you start taking the vitamins. You can use the nausea medication as well. Recommend a bland diet. Fluids are important. You can advance your diet as tolerated. Contact the OB providers in the number provided below for follow-up. Return to the emergency department for new symptoms. Prescriptions: New ondansetron 4 mg tablet,disintegrating 4 mg PO Q6H PRN (Reason: nausea and vomiting) Qty: 20 0RF PNV cmb#95-ferrous fumarate-FA 28 mg iron- 800 mcg tablet 1 tab PO DAILY Qty: 30 3RF Referrals: Leann Cobb MD [Physician] - Ellie Espinal DO [Primary Care Provider] - Stand Alone Forms: Patient Portal/API
--- NOTE | 2024-06-30 13:04 | DI.US.S_ITS ---
PROCEDURE: US OB <= 14 WEEKS FETUS INDICATIONS: unknown dates with abd pain OUTSIDE/PRIOR DATING DATA: Last menstrual period (LMP): Unknown. LMP-based estimated date of delivery (CASSIDY): Unknown. First dating scan (date and location): None. Estimated date of delivery (CASSIDY) from first dating scan: Unknown. TECHNIQUE: Real-time scanning was performed of the fetus and maternal pelvic organs, with image documentation. Endovaginal scanning was also performed to better visualize the fetus and maternal ovaries. COMPARISON: [facility], , OB <= 14 WEEKS FETUS, 09/01/2019, 13:05. FINDINGS: Embryo: There is a intrauterine gestational sac has a pole and yolk sac. There is no subchorionic hemorrhage. Heart rate: 131 Maternal organs: Ovaries normal with a corpus luteal cyst on the right.. IMPRESSION: James intrauterine gestation with measurements correlating with a gestational age of 6 weeks and 6days for an CASSIDY of 02/17/2025. We strive to produce accurate, complete, and clear reports of imaging services. To assist us in improving patient care, this report was composed using standard report templates and voice recognition software. Therefore, it may contain abnormal punctuation, insertions and/or omissions. Occasional wrong-word or sound-alike substitutions may occur. Though we review the report and make efforts to correct it, we do recommend that the report be read carefully in proper context to recognize any text inaccuracies. Dictated by: Amanda Jordan M.D. on 06/30/2024 at 13:40 Approved by: Amanda Jordan M.D. on 06/30/2024 at 13:43
== END 2024-06-30 15:07 | disposition home or self-care (01) ==
PROVIDERS: Emergency Provider Emergency Medicine; PCP Family Medicine
DX: O21.9 Vomiting of pregnancy, unspecified (principal); Z11.52 Encounter for screening for COVID-19; Z3A.01 Less than 8 weeks gestation of pregnancy
CPT/HCPCS: 36415; 76801; 80053; 81003; 81025; 85025; 87635; 96361; 96374; 99284; J2405

== ENCOUNTER 2024-07-08 03:51 | Emergency (ER) | payer OTHER, MEDICAID, SELFPAY ==
[2024-07-08 04:09] VITALS: BP 138/82; PULSE 76; RESP 18; TEMP 36.6; O2SAT 97
[2024-07-08 04:30] LABS: Add Manual Diff / Slide Review NO; Basophils Absolute Auto 100 /uL (0-100); Basophils Percent Auto 0.6 % (0-2); Eosinophils Absolute Auto 100 /uL (0-450); Eosinophils Percent Auto 0.3 % (2-4); Hematocrit 37.9 % (36-46); Hemoglobin 12.8 g/dL (12.0-16.0); Lymphocytes Absolute Auto 1800 /uL (1100-4500); Lymphocytes Percent Auto 8.2 % (25-40); Mean Corpuscular HGB Conc 33.8 % (30-36); Mean Corpuscular Hemoglobin 30.4 PG (26-34); Mean Corpuscular Volume 89.8 fL (80-100); Monocytes Absolute Auto 500 /uL (0-900); Neutrophils Absolute Auto 20000 /uL (1500-7000); Neutrophils Percent Auto 88.9 % (50-75); Platelet Count 545 X10^3/uL (150-400); Red Blood Cell Count 4.22 X10^6/uL (4.0-5.2); Red Cell Distribution Width 12.7 % (11.6-14.8); White Blood Cell Count 22.5 X10^3/uL (4.5-11.0)
[2024-07-08] MEDS: ONDANSETRON 4 MG/2 ML INJ IV (04:32)
[2024-07-08] MEDS: SODIUM CHLORIDE 0.9% 1,000 ML 1000 ML IV ×2 (04:32→04:58)
--- NOTE | 2024-07-08 04:33 | ED.NAVMDI ---
HPI - Nausea/Vomiting/Diarrhea General Chief complaint: Nausea/Vomiting/Diarrhea Stated complaint: Nausea,vomitting, 8 wks Time Seen by Provider: 07/08/24 04:09 Source: patient Mode of arrival: Ambulatory History of Present Illness HPI Narrative: Patient is a 28-year-old female , prior pregnancies and did an elective presenting today with ongoing nausea vomiting. She found out last week that she was . She was seen evaluated here in the ED on 06/30/2024 where she would ultrasound showing an IUP at 6 weeks and 6 days. Today she has persistent vomiting that started yesterday. She has abdominal pain she says from throwing up. She denies any vaginal bleeding or discharge. Unable to keep anything down. She is unsure what she is going to do with this . She is shivering quite cold he says that she is always cold and sleeps with a heating blanket. She was previously smoking marijuana but says it once we found out that she was she cut back significantly she started taking prenatals as well. Related Data Previous Rx's Medication Instructions Recorded ondansetron 4 mg disintegrating 4 mg PO Q6H PRN nausea and 06/30/24 tablet vomiting #20 tabs vit no.95-ferrous 1 tab PO DAILY #30 tabs 06/30/24 fumarate 28 mg-folic acid 800 mcg tablet ondansetron 4 mg disintegrating 4 mg PO Q8H PRN nausea and 07/08/24 tablet vomiting #10 tabs Allergies Allergy/AdvReac Type Severity Reaction Status Date / Time No Known Drug Allergies Allergy Verified 06/30/24 12:09 Patient History Medical History Seasonal allergies Medical history non-contributory Family history non-contributory Surgical History H/O wisdom tooth extraction Family History Mother Asthma Breast lump in female Family/Other Breast cancer Father Hypertension Social History marital status: unmarried,single Smoking Status: Former smoker Smoking Status: Former smoker alcohol intake frequency: other Substance Use Type: marijuana Exam Initial Vital Signs Initial Vital Signs: Vital Signs Temperature 97.8 F 07/08/24 04:09 Pulse Rate 76 07/08/24 04:09 Respiratory Rate 18 07/08/24 04:09 Blood Pressure 138/82 07/08/24 04:09 Pulse Oximetry 97 07/08/24 04:09 Oxygen Delivery Method Room Air 07/08/24 04:09 GENERAL: Alert 28-year-old female and in [no acute] distress. HEENT: Head atraumatic,EOMI, pupils reactive, face symmetric, [moist] mucous membranes CARDIOVASCULAR: Regular rate and rhythm without murmurs, rubs or gallops. RESPIRATORY: Breath sounds equal bilaterally, no wheezes rales or rhonchi. ABDOMEN: Soft, minimally tender no guarding no distention no significant suprapubic pain EXTREMITIES: Normal range of motion, no clubbing or edema. Neurovascularly intact NEUROLOGICAL: Alert and oriented x4.Normal gait and speech. SKIN: Warm, dry, no laceration, no petechiae, no rashes or lesions. Course Orders Ordered: Discontinued Medications Sodium Chloride (Normal Saline 0.9%) 1,000 mls @ 1,000 mls/hr IV BOLUS ONE Stop: 07/08/24 05:08 Last Infusion: 07/08/24 04:58 Dose: Infused Documented By: Admin: 07/08/24 04:32 Dose: 1,000 mls/hr Documented By: SURESH Sodium Chloride (Normal Saline 0.9%) 1,000 mls @ 1,000 mls/hr IV BOLUS ONE Stop: 07/08/24 05:47 Last Infusion: 07/08/24 06:01 Dose: Infused Documented By: Admin: 07/08/24 04:58 Dose: 1,000 mls/hr Documented By: RAFFI Acetaminophen (Ofirmev) 1,000 mg in 100 mls @ 400 mls/hr IV NOW ONE Stop: 07/08/24 05:02 Last Infusion: 07/08/24 05:20 Dose: Infused Documented By: Admin: 07/08/24 04:54 Dose: 400 mls/hr Documented By: RAFFI Ondansetron HCl (Ondansetron 4 Mg/2 Ml Inj) 4 mg IV NOW ONE Stop: 07/08/24 04:17 Last Admin: 07/08/24 04:32 Dose: 4 mg Documented By: SURESH Vital Signs Vital signs: Vital Signs - 8 hr 07/08/24 04:09 Temperature 97.8 F Pulse Rate 76 Respiratory Rate 18 Blood Pressure 138/82 Pulse Oximetry 97 Oxygen Delivery Method Room Air MDM - Nausea/Vomiting/Diarrhea Lab Data 07/08/24 03:15 07/08/24 03:15 Labs: Lab Results 07/08/24 07/08/24 07/08/24 Range/Units 03:15 06:05 06:20 WBC 22.5 H (4.5-11.0) X10^3/uL RBC 4.22 (4.0-5.2) X10^6/uL Hgb 12.8 (12.0-16.0) g/dL Hct 37.9 (36-46) % MCV 89.8 (80-100) fL MCH 30.4 (26-34) PG MCHC 33.8 (30-36) % RDW 12.7 (11.6-14.8) % Plt Count 545 H (150-400) X10^3/uL Neut % (Auto) 88.9 H (50-75) % Lymph % (Auto) 8.2 L (25-40) % [place] % (Auto) 2.0 L (3-14) % Eos % (Auto) 0.3 L (2-4) % Baso % (Auto) 0.6 (0-2) % Neut # (Auto) 35744 H (8203-3331) /uL Lymph # (Auto) 1800 (2469-1758) /uL [place] # (Auto) 500 (0-900) /uL Eos # (Auto) 100 (0-450) /uL Baso # (Auto) 100 (0-100) /uL Sodium 135 L (137-145) mmol/L Potassium 3.7 (3.4-5.1) mmol/L Chloride 103 (98-107) mmol/L Carbon Dioxide 18 L (22-32) mmol/L BUN 11 (7-17) mg/dL Creatinine 0.51 L (0.52-1.04) mg/dL Estimated GFR > 60 (>60) mL/min BUN/Creatinine Ratio 21.6 (6-22) Glucose 158 H (70-100) mg/dL Lactate 2.7 H 1.2 (0.7-2.1) mmol/L Calcium 9.6 (8.4-10.2) mg/dL Total Bilirubin 1.6 H (0.2-1.3) mg/dL AST 20 (14-36) IU/L ALT 18 (<35) IU/L Alkaline Phosphatase 34 L (38-126) U/L Total Protein 8.3 H (6.3-8.2) g/dL Albumin 5.0 (3.5-5.0) g/dL Globulin 3.3 (1.7-4.1) g/dL Albumin/Globulin Ratio 1.5 (1.0-2.8) Urine RBC 0-1/hpf (0-5/HPF) Urine WBC 0-1/hpf (0-5/HPF) Ur Squamous Epith Cells 10-30 /hpf H (0-5/HPF) Urine Bacteria Many (>30) H (None) Urine Mucus 3+ H (Negative) Urine Yeast 0-1/hpf (None) Ur Culture Indicated? Cult not indicated Vol Urine Centrifuged 10ml (spun) Urine Dip Bedside Urine Glucose 100 mg/dl Bedside Urine Bilirubin - Negative Bedside Urine Ketone +++ 80 Urine Specific [place] 1.015 Bedside Urine Occult Blood - Negative Bedside Urine pH 6.0 Bedside Urine Protein - Negative Bedside Urine Urobilinogen - Negative Bedside Urine Nitrite - Negative Bedside Urine Leukocytes - Negative Esterase MDM Narrative Medical decision making narrative: Patient 28-year-old female presenting today with nausea vomiting. She had an IUP on June 30. She is scheduled to see Ob next week. He was found to have significant leukocytosis 22.5 which is higher than last week at 18.4 ever during her other pregnancies she did have significant leukocytosis as high as 20 in 2019 when she was last . Blood work: WBC 22.5 hemoglobin 12.5 hematocrit 37.9 platelets 545, sodium 135, potassium 3.7, chloride 103, carbon dioxide 18 BUN 11 creatinine 0.5 glucose 158 T bili 1.6, AST 20, ALT 18, alk-phos 34 Lactic acid 2.7 Patient did receive 2 L of IV fluids and IV Tylenol. Pain is much better. She did have ultrasound previously which showed IUP. Overall feeling better tolerating fluids. No need for further workup or admission. #254: Ultrasound for Patients with Abdominal Pain [] The patient is and presents with abdominal pain or vaginal bleeding. A trans-abdominal or trans-vaginal ultrasound was performed and the location is documented. [SATISFIES MIPS PERFORMANCE] X The patient is and presents with abdominal pain or vaginal bleeding. A trans-abdominal or trans-vaginal ultrasound was NOT performed because IUP confirmed on 06/30/2024 (ex. , patient has documented intrauterine ) [MIPS PERFORMANCE EXCEPTION/EXCLUSION] [] The patient is and presents with abdominal pain or vaginal bleeding. A trans-abdominal or trans-vaginal ultrasound was NOT performed, no reason documented. [DOES NOT SATISFY MIPS PERFORMANCE] Discharge Plan Departure Patient Disposition: Home Clinical Impression: Hyperemesis affecting , antepartum Instructions: DI for Hyperemesis Gravidarum Activity Restrictions/Additional Instructions: *You have been diagnosed with hyperemesis *What to do: On June 30 you were 6 weeks and 6 days Increase fluids as tolerated may need prune juice try any small frequent meal Can try [id number] B6 vitamin to help with nausea *Continue to take medications as directed Zofran 4 mg every 8 hours for nausea or vomiting Dulcolax 1 tablet twice a day as needed for constipation *Follow up with your primary care provider in 2-3 days or call [phone] *Return to ER if you should have persistent vomiting abdominal pain vaginal bleeding or any new, worsening or concerning symptoms Prescriptions: New ondansetron 4 mg tablet,disintegrating 4 mg PO Q8H PRN (Reason: nausea and vomiting) Qty: 10 0RF No Action ondansetron 4 mg tablet,disintegrating 4 mg PO Q6H PRN (Reason: nausea and vomiting) Qty: 20 0RF PNV cmb#95-ferrous fumarate-FA 28 mg iron- 800 mcg tablet 1 tab PO DAILY Qty: 30 3RF Referrals: Ellie Espinal DO [Primary Care Provider] - Stand Alone Forms: Patient Portal/API
[2024-07-08 04:41] LABS: Alanine Aminotransferase 18 IU/L (<35); Albumin Globulin Ratio 1.5 (1.0-2.8); Alkaline Phosphatase 34 U/L (38-126); Aspartate Aminotransferase 20 IU/L (14-36); BUN Creatinine Ratio 21.6 (6-22); Bilirubin Total 1.6 mg/dL (0.2-1.3); Blood Urea Nitrogen 11 mg/dL (7-17); Calcium 9.6 mg/dL (8.4-10.2); Carbon Dioxide 18 mmol/L (22-32); Chloride 103 mmol/L (98-107); Estimated Glomerular Filt Rate > 60 mL/min (>60); Globulin 3.3 g/dL (1.7-4.1); Glucose 158 mg/dL (70-100); HEMOLYSIS 22 (0-50); Potassium 3.7 mmol/L (3.4-5.1); Sodium 135 mmol/L (137-145); Total Protein 8.3 g/dL (6.3-8.2)
[2024-07-08] MEDS: ACETAMINOPHEN IV 1,000 MG/100 ML VIAL 400 MG IV (04:54)
[2024-07-08 05:11] LABS: Lactate (Lactic Acid) 2.7 mmol/L (0.7-2.1)
--- NOTE | 2024-07-08 06:21 | PC.NURSE ---
Pt given ice chips
[2024-07-08 06:27] LABS: Reflexed Lactate in 2 Hours Y
[2024-07-08 06:28] LABS: Bacteria Urine Many (>30); RBC Urine 0-1/HPF (0-5/HPF); Urine Volume 10mL (spun); WBC Urine 0-1/HPF (0-5/HPF)
[2024-07-08 06:29] LABS: Mucus Urine 3+ (Negative); Squamous Epithelial Cell Urine 10-30 /HPF (0-5/HPF)
[2024-07-08 06:31] LABS: Culture Indicated Urine Cult Not Indicated
--- NOTE | 2024-07-08 06:40 | PC.NURSE ---
Pt is tolerating ice chips
[2024-07-08 06:41] LABS: Lactate 2HR (Lactic Acid Rflx) 1.2 mmol/L (0.7-2.1)
[2024-07-08 06:51] VITALS: BP 95/67; PULSE 65; RESP 16; O2SAT 100
== END 2024-07-08 06:53 | disposition home or self-care (01) ==
PROVIDERS: Emergency Provider Emergency Medicine; PCP Family Medicine
DX: O21.0 Mild hyperemesis gravidarum (principal); Z3A.08 8 weeks gestation of pregnancy
CPT/HCPCS: 36415; 80053; 81003; 81015; 83605; 85025; 96365; 96375; 99284; J0136; J2405

== ENCOUNTER 2024-07-08 21:44 | Observation (INO) | payer OTHER, MEDICAID, SELFPAY ==
[2024-07-08 21:49] VITALS: BP 124/80; PULSE 71; RESP 16; TEMP 37.3; O2SAT 100
--- NOTE | 2024-07-08 23:00 | DI.US.S_ITS ---
PROCEDURE: US OB <= 14 WEEKS FETUS INDICATIONS: 8 weeks ab pain OUTSIDE/PRIOR DATING DATA: Last menstrual period (LMP): Unknown. LMP-based estimated date of delivery (CASSIDY): Unknown. First dating scan (date and location): 06/30/2024. Estimated date of delivery (CASSIDY) from first dating scan: 02/17/2025. TECHNIQUE: Real-time scanning was performed of the fetus and maternal pelvic organs, with image documentation. Endovaginal scanning was also performed to better visualize the fetus and maternal ovaries. COMPARISON: [facility], , OB <= 14 WEEKS FETUS, 06/30/2024, 13:53. FINDINGS: Embryo: pole with crown-rump length measuring 1.5 cm, consistent with 7 weeks and 6 days. Heart rate: 173 Maternal organs: Ovaries are within normal limits. IMPRESSION: Single live intrauterine consistent with 7 weeks and 6 days. No abnormalities are identified. We strive to produce accurate, complete, and clear reports of imaging services. To assist us in improving patient care, this report was composed using standard report templates and voice recognition software. Therefore, it may contain abnormal punctuation, insertions and/or omissions. Occasional wrong-word or sound-alike substitutions may occur. Though we review the report and make efforts to correct it, we do recommend that the report be read carefully in proper context to recognize any text inaccuracies. Dictated by: Philippe Hoang M.D. on 07/09/2024 at 1:12 Approved by: Philippe Hoang M.D. on 07/09/2024 at 1:14
[2024-07-08 23:39] VITALS: O2SAT 92
[2024-07-08 23:41] VITALS: BP 161/87; PULSE 84; O2SAT 98
[2024-07-08] MEDS: SODIUM CHLORIDE 0.9% 1,000 ML 1000 ML IV (23:58)
[2024-07-08] MEDS: METOCLOPRAMIDE 10 MG/2 ML INJ IV (23:58)
[2024-07-09] VITALS: BP 151/84; PULSE 63; O2SAT 99
[2024-07-09 00:08] LABS: Add Manual Diff / Slide Review NO; Basophils Absolute Auto 0 /uL (0-100); Basophils Percent Auto 0.1 % (0-2); Eosinophils Absolute Auto 0 /uL (0-450); Eosinophils Percent Auto 0.1 % (2-4); Hematocrit 33.9 % (36-46); Hemoglobin 11.5 g/dL (12.0-16.0); Lymphocytes Absolute Auto 1300 /uL (1100-4500); Lymphocytes Percent Auto 8.2 % (25-40); Mean Corpuscular HGB Conc 34.1 % (30-36); Mean Corpuscular Hemoglobin 30.5 PG (26-34); Mean Corpuscular Volume 89.6 fL (80-100); Monocytes Absolute Auto 500 /uL (0-900); Monocytes Percent Auto 3.4 % (3-14); Neutrophils Absolute Auto 13800 /uL (1500-7000); Neutrophils Percent Auto 88.2 % (50-75); Platelet Count 476 X10^3/uL (150-400); Red Blood Cell Count 3.78 X10^6/uL (4.0-5.2); Red Cell Distribution Width 12.6 % (11.6-14.8); White Blood Cell Count 15.6 X10^3/uL (4.5-11.0)
[2024-07-09 00:15] LABS: Alanine Aminotransferase 15 IU/L (<35); Albumin 4.4 g/dL (3.5-5.0); Albumin Globulin Ratio 1.3 (1.0-2.8); Alkaline Phosphatase 34 U/L (38-126); Aspartate Aminotransferase 19 IU/L (14-36); BUN Creatinine Ratio 21.3 (6-22); Bilirubin Total 1.4 mg/dL (0.2-1.3); Blood Urea Nitrogen 10 mg/dL (7-17); Calcium 9.1 mg/dL (8.4-10.2); Carbon Dioxide 20 mmol/L (22-32); Chloride 103 mmol/L (98-107); Estimated Glomerular Filt Rate > 60 mL/min (>60); Globulin 3.3 g/dL (1.7-4.1); Glucose 120 mg/dL (70-100); HEMOLYSIS < 15 (0-50); Lactate (Lactic Acid) 1.8 mmol/L (0.7-2.1); Potassium 3.1 mmol/L (3.4-5.1); Sodium 134 mmol/L (137-145); Total Protein 7.7 g/dL (6.3-8.2)
[2024-07-09 00:30] VITALS: PULSE 84; RESP 18; O2SAT 97
--- NOTE | 2024-07-09 00:44 | ED.ABDPAIN ---
HPI - Abdominal Pain General Chief Complaint: Abdominal Pain Stated Complaint: 8 weeks , can't keep anything down Time Seen by Provider: 07/09/24 00:44 Source: patient Mode of arrival: Ambulatory History of Present Illness HPI narrative: Patient 28-year-old female prior pregnancies ended in elective presenting today with ongoing nausea vomiting. I saw her earlier this morning for the same she has some leukocytosis of 22 she was given anti nausea medications and discharged home. She reports that she has been throwing up all day unable to keep anything and despite Zofran. She is now having worsening abdominal pain no diarrhea or fever. No painful or frequent urination. She has not yet established care. Related Data Previous Rx's Medication Instructions Recorded ondansetron 4 mg disintegrating 4 mg PO Q6H PRN nausea and 06/30/24 tablet vomiting #20 tabs vit no.95-ferrous 1 tab PO DAILY #30 tabs 06/30/24 fumarate 28 mg-folic acid 800 mcg tablet ondansetron 4 mg disintegrating 4 mg PO Q8H PRN nausea and 07/08/24 tablet vomiting #10 tabs Allergies Allergy/AdvReac Type Severity Reaction Status Date / Time No Known Drug Allergies Allergy Verified 06/30/24 12:09 Patient History Medical History Seasonal allergies Medical history non-contributory Family history non-contributory Surgical History H/O wisdom tooth extraction Family History Mother Asthma Breast lump in female Family/Other Breast cancer Father Hypertension Social History marital status: unmarried,single household members: significant other Smoking Status: Former smoker alcohol intake: current Smoking Status: Former smoker alcohol intake frequency: other Substance Use Type: marijuana Exam Initial Vital Signs Initial Vital Signs: Vital Signs Temperature 99.2 F 07/08/24 21:49 Pulse Rate 71 07/08/24 21:49 Respiratory Rate 16 07/08/24 21:49 Blood Pressure 124/80 07/08/24 21:49 Pulse Oximetry 100 07/08/24 21:49 Oxygen Delivery Method Room Air 07/08/24 21:49 GENERAL: Alert 28-year-old female HEENT: Head atraumatic,EOMI, pupils reactive, face symmetric, [moist] mucous membranes CARDIOVASCULAR: Regular rate and rhythm without murmurs, rubs or gallops. RESPIRATORY: Breath sounds equal bilaterally, no wheezes rales or rhonchi. ABDOMEN: Soft, nontender. Normoactive bowel sounds all 4 quadrants. No guarding or rebound. EXTREMITIES: Normal range of motion, no clubbing or edema. Neurovascularly intact no distention NEUROLOGICAL: Alert and oriented x4.Normal gait and speech. SKIN: Warm, dry, no laceration, no petechiae, no rashes or lesions. Course Orders Ordered: ED Orders 07/08/24 23:00 US OB <= 14 weeks fetus Stat 07/08/24 23:51 CBC Auto Diff [Complete Blood Count AUTO DIFF] Stat CMP [Comprehensive Metabolic Panel] Stat Lactate (Lactic Acid) Stat Acetaminophen (Acetaminophen 325 Mg Tablet) 650 mg PO Q6HR PRN PRN Reason: Fever/Mild Pain (1-3) Sodium Chloride (Normal Saline 0.9%) 1,000 mls @ 125 mls/hr IV CONT ATIYA Last Admin: 07/09/24 01:57 Dose: 125 mls/hr Documented By: SURESH Metoclopramide HCl (Metoclopramide 10 Mg/2 Ml Inj) 10 mg IV Q6H PRN PRN Reason: Nausea And Vomiting Last Admin: 07/09/24 03:18 Dose: 10 mg Documented By: CARMEL Ondansetron HCl (Ondansetron 4 Mg/2 Ml Inj) 4 mg IV Q4HR PRN PRN Reason: Nausea And Vomiting Last Admin: 07/09/24 01:57 Dose: 4 mg Documented By: SURESH Discontinued Medications Sodium Chloride (Normal Saline 0.9%) 1,000 mls @ 1,000 mls/hr IV BOLUS ONE Stop: 07/09/24 00:49 Last Infusion: 07/09/24 01:01 Dose: Infused Documented By: Admin: 07/08/24 23:58 Dose: 1,000 mls/hr Documented By: CARLY Metoclopramide HCl (Metoclopramide 10 Mg/2 Ml Inj) 10 mg IV NOW ONE Stop: 07/08/24 23:51 Last Admin: 07/08/24 23:58 Dose: 10 mg Documented By: CARLY Metoclopramide HCl (Metoclopramide 10 Mg/2 Ml Inj) 10 mg IV NOW ONE Stop: 07/09/24 01:37 Last Admin: 07/09/24 01:54 Dose: Not Given Documented By: SURESH Vital Signs Vital signs: Vital Signs - 8 hr 07/08/24 21:49 07/08/24 23:39 07/08/24 23:41 Temperature 99.2 F Pulse Rate 71 Respiratory Rate 16 Blood Pressure 124/80 161/87 H Pulse Oximetry 100 92 Oxygen Delivery Method Room Air 07/08/24 23:41 07/09/24 00:00 07/09/24 00:00 Temperature Pulse Rate 84 63 Respiratory Rate Blood Pressure 151/84 H Pulse Oximetry 98 99 Oxygen Delivery Method 07/09/24 00:30 Temperature Pulse Rate 84 Respiratory Rate 18 Blood Pressure Pulse Oximetry 97 Oxygen Delivery Method MDM - Abdominal Pain Lab Data 07/08/24 23:51 07/08/24 23:51 Labs: Lab Results 07/08/24 Range/Units 23:51 WBC 15.6 H (4.5-11.0) X10^3/uL RBC 3.78 L (4.0-5.2) X10^6/uL Hgb 11.5 L (12.0-16.0) g/dL Hct 33.9 L (36-46) % MCV 89.6 (80-100) fL MCH 30.5 (26-34) PG MCHC 34.1 (30-36) % RDW 12.6 (11.6-14.8) % Plt Count 476 H (150-400) X10^3/uL Neut % (Auto) 88.2 H (50-75) % Lymph % (Auto) 8.2 L (25-40) % [place] % (Auto) 3.4 (3-14) % Eos % (Auto) 0.1 L (2-4) % Baso % (Auto) 0.1 (0-2) % Neut # (Auto) 99146 H (3800-4269) /uL Lymph # (Auto) 1300 (1125-9496) /uL [place] # (Auto) 500 (0-900) /uL Eos # (Auto) 0 (0-450) /uL Baso # (Auto) 0 (0-100) /uL Sodium 134 L (137-145) mmol/L Potassium 3.1 L (3.4-5.1) mmol/L Chloride 103 (98-107) mmol/L Carbon Dioxide 20 L (22-32) mmol/L BUN 10 (7-17) mg/dL Creatinine 0.47 L (0.52-1.04) mg/dL Estimated GFR > 60 (>60) mL/min BUN/Creatinine Ratio 21.3 (6-22) Glucose 120 H (70-100) mg/dL Lactate 1.8 (0.7-2.1) mmol/L Calcium 9.1 (8.4-10.2) mg/dL Total Bilirubin 1.4 H (0.2-1.3) mg/dL AST 19 (14-36) IU/L ALT 15 (<35) IU/L Alkaline Phosphatase 34 L (38-126) U/L Total Protein 7.7 (6.3-8.2) g/dL Albumin 4.4 (3.5-5.0) g/dL Globulin 3.3 (1.7-4.1) g/dL Albumin/Globulin Ratio 1.3 (1.0-2.8) Imaging Data US - OB: Radiologist's Impression: PROCEDURE: US OB <= 14 WEEKS FETUS INDICATIONS: 8 weeks ab pain OUTSIDE/PRIOR DATING DATA: Last menstrual period (LMP): Unknown. LMP-based estimated date of delivery (CASSIDY): Unknown. First dating scan (date and location): 06/30/2024. Estimated date of delivery (CASSIDY) from first dating scan: 02/17/2025. TECHNIQUE: Real-time scanning was performed of the fetus and maternal pelvic organs, with image documentation. Endovaginal scanning was also performed to better visualize the fetus and maternal ovaries. COMPARISON: [facility], , US OB <= 14 WEEKS FETUS, 06/30/2024, 13:53. FINDINGS: Embryo: pole with crown-rump length measuring 1.5 cm, consistent with 7 weeks and 6 days. Heart rate: 173 Maternal organs: Ovaries are within normal limits. IMPRESSION: Single live intrauterine consistent with 7 weeks and 6 days. No abnormalities are identified. We strive to produce accurate, complete, and clear reports of imaging services. To assist us in improving patient care, this report was composed using standard report templates and voice recognition software. Therefore, it may contain abnormal punctuation, insertions and/or omissions. Occasional wrong-word or sound-alike substitutions may occur. Though we review the report and make efforts to correct it, we do recommend that the report be read carefully in proper context to recognize any text inaccuracies. Dictated by: Philippe Hoang M.D. on 07/09/2024 at 1:12 MDM Narrative Medical decision making narrative: MDM CC: Vomiting Complicating co-morbidities: 8 weeks Medical records reviewed: Recent ED visits Differential considered: Hyperemesis gravidarum, miscarriage Exam documented above, pertinent findings include: Mild abdominal pain and discomfort overall does not appear toxic Lab Test results independently reviewed as above. Pertinent findings: WBC 15.6 hemoglobin 11.5 hematocrit 33.9 platelets 476 earlier this morning she would leukocytosis of 22.5 so significant improvement suspect secondary to vomiting and 134 potassium was 3.1 was previously 3.7 chloride 103 bicarb 20 BUN 10 creatinine 0.4 glucose 120, bilirubin 1.4 AST Independently reviewed EKG as above Imaging studies independently reviewed: Ultrasound confirms IUP 7 weeks 6 days Consultations: Dr. Pan updated on patient's symptoms test results states L&D is on divert agreeable patient go to the floor Treatments: IV Zofran Reglan Re-evaluations: Patient was feeling much better after fluids she was given a trial of apple juice and then all quickly came back up Discussion: This is patient's 2nd visit here in less than 24 hours for ongoing nausea vomiting. She was treated as outpatient today put on Zofran but really not tolerating anything. She is mildly hypokalemic today at 3.1. Zofran is not working. Discharge Plan Departure Patient Disposition: Admitted as Observation Clinical Impression: Hyperemesis affecting , antepartum, Acute hypokalemia Admit Date/Time: 07/09/24 01:37 Admit Provider: Shannon Pan
--- NOTE | 2024-07-09 01:03 | PC.NURSE ---
Pt stating that she is feeling better. Ice chips given for PO challenge.
--- NOTE | 2024-07-09 01:08 | PC.NURSE ---
Pt removed all monitoring equipment stating that they are uncomfortable. Pt counseled against this and educated on their purpose.
[2024-07-09] MEDS: SODIUM CHLORIDE 0.9% 1,000 ML 125 ML IV ×2 (01:57→13:43)
[2024-07-09] MEDS: ONDANSETRON 4 MG/2 ML INJ IV ×3 (01:57→15:40)
[2024-07-09] MEDS: METOCLOPRAMIDE 10 MG/2 ML INJ IV ×3 (03:18→18:14)
--- NOTE | 2024-07-09 06:01 | PM.GYNHP.1 ---
History of Present Illness History of Present Illness Narrative: Jada Lincoln is a 28 year old (EAB X2) EDC 02/17/25, 8 weeks by dates, admitted for hyperemesis, hypokalemia. [facility] Medical History Seasonal allergies Medical history non-contributory Family history non-contributory Surgical History H/O wisdom tooth extraction Family History Mother Asthma Breast lump in female Family/Other Breast cancer Father Hypertension Social History marital status: unmarried,single household members: significant other Smoking Status: Former smoker alcohol intake: current Meds Home Medications and Allergies Home Medications Medication Instructions Recorded Confirmed Type ondansetron 4 mg disintegrating 4 mg PO Q6H PRN nausea and 06/30/24 07/09/24 Rx tablet vomiting #20 tabs vit no.95-ferrous 1 tab PO DAILY #30 tabs 06/30/24 07/09/24 Rx fumarate 28 mg-folic acid 800 mcg tablet ondansetron 4 mg disintegrating 4 mg PO Q8H PRN nausea and 07/08/24 07/09/24 Rx tablet vomiting #10 tabs Allergies Allergy/AdvReac Type Severity Reaction Status Date / Time No Known Drug Allergies Allergy Verified 06/30/24 12:09 Review of Systems Review of Systems Narrative: Patient with nausea and vomiting. No fevers. No vaginal bleeding. Patient was having abdominal pain which is resolved. Exam Vital Signs (past 8 hours): - 07/08/24 23:39 07/08/24 23:41 07/08/24 23:41 Pulse Rate 84 Respiratory Rate Blood Pressure 161/87 H Pulse Oximetry 92 98 07/09/24 00:00 07/09/24 00:00 07/09/24 00:30 Pulse Rate 63 84 Respiratory Rate 18 Blood Pressure 151/84 H Pulse Oximetry 99 97 Oxygen Delivery Method Room Air Narrative Exam Narrative: HEENT exam within normal limits. Lungs are clear to auscultation and percussion. No thyromegaly. Heart is regular rate and rhythm no S3-S4 murmurs. Abdomen is soft, minimal tenderness without rebound. Extremities without edema and nontender. Objective Labs 07/08/24 23:51 07/08/24 23:51 Labs: Laboratory Results - last 24 hr 07/08/24 23:51 WBC 15.6 H RBC 3.78 L Hgb 11.5 L Hct 33.9 L MCV 89.6 MCH 30.5 MCHC 34.1 RDW 12.6 Plt Count 476 H Neut % (Auto) 88.2 H Lymph % (Auto) 8.2 L [place] % (Auto) 3.4 Eos % (Auto) 0.1 L Baso % (Auto) 0.1 Neut # (Auto) 79988 H Lymph # (Auto) 1300 [place] # (Auto) 500 Eos # (Auto) 0 Baso # (Auto) 0 Sodium 134 L Potassium 3.1 L Chloride 103 Carbon Dioxide 20 L BUN 10 Creatinine 0.47 L Estimated GFR > 60 BUN/Creatinine Ratio 21.3 Glucose 120 H Lactate 1.8 Calcium 9.1 Total Bilirubin 1.4 H AST 19 ALT 15 Alkaline Phosphatase 34 L Total Protein 7.7 Albumin 4.4 Globulin 3.3 Albumin/Globulin Ratio 1.3 Assessment & Plan Assessment and plan (1) Acute hypokalemia: Status: Acute (2) Hyperemesis affecting , antepartum: Status: Acute (3) 8 weeks gestation of : Status: Acute Assessment & Plan narrative: 8 week gestation presented 3 times the emergency room for nausea and vomiting not improved by ondansetron. She was found to be hypokalemic and admitted for IV fluids and nausea medication. Home when patient is stable, and able to tolerate oral medication and food. Time-Based Coding :: [TOTAL MINUTES] spent with patient and on the chart (including review of chart, obtaining history, exam, reviewing outside data, placing orders, documenting exam and treatment plan, and counseling patient) on [DATE]. Quality VTE Deep Vein Thrombosis/Pulmonary Embolism Present on Admission: No
[2024-07-09 08:00] VITALS: BP 146/78; PULSE 70; RESP 16; TEMP 36.8; O2SAT 98
[2024-07-09 08:03] LABS: Carbon Dioxide 20 mmol/L (22-32); Chloride 102 mmol/L (98-107); HEMOLYSIS < 15 (0-50); Sodium 133 mmol/L (137-145)
[2024-07-09] MEDS: POTASSIUM CHLORIDE IN WATER 10 MEQ/100 ML PIGGYBACK 100 MEQ IV (09:59)
[2024-07-09] MEDS: POTASSIUM CHLORIDE 20 MEQ TAB 40 MEQ PO ×2 (11:40→18:15)
--- NOTE | 2024-07-09 12:34 | PC.NURSE ---
Patients iv to r.ac d/cd. she did not tolerate her iv potassium in her iv. IV was hurting her so a new one was started in her r.upper arm. She has NS at 125cc/hr and did have one emesis earlier when she was showering. Patient did tolerate oral potassium well and was given reglan prior to this. She asked to get back in the shower again and was just heplocked.
--- NOTE | 2024-07-09 12:35 | CM.DANOTE ---
Initial DCP Assessment Visit Note Reviewed EMR and team rounds for status updates. Met with pt at bedside to introduce self and role, pt was found to be resting quietly in bed, expressing still feeling nauseous and tired. Pt lives with her mother in their own home in [place]. Her mother or SO will plan to pick her up once she's stabilized, likely tomorrow (Tuesday). No resource/assistance needs are identified at this time from DCP. Payor: [facility] PCP: Carolann Espinal Attending: Dr. Pan Pt is a 28 year-old F who had presented to the ED twice yesterday for hyperemesis, unable to keep anything down all day yesterday even w/Zofran. MEDICAL RECORD LIBRARIAN was consulted, pt was found to be acutely hypokalemic as well, gestation is 8-weeks. Pt was brought to the floor under OBS for IV fluids and antiemetic medications. Plan is to d/c once stable. Discharge Planning/Care Management CM Discharge Assessment Start: 07/09/24 12:33 Freq: Status: Active Protocol: Document 07/09/24 12:33 DPL (Rec: 07/09/24 12:35 DPL [id number]) Discharge Planning Assessment Assigned Medical Record Librarian AURELIO Wells Advance Directives? No History Provided By Patient,Medical Record Has Patient been admitted in last 30 No days? Prior Living Arrangements House Household Members significant other Type of transporation used prior to Drives own vehicle admit Independent with ADL's Yes Is patient alert and oriented? Yes Caregiver for Another No Comment No identified needs at this time. Barriers to Discharge No Discharge Plan Home Transportation Arrangement Family Referrals Initiated None needed Whiteboard Updated in Patient Room with Yes name and ext. # of Medical Record Librarian Review Status In Process Please Provide Date Initial DC 07/09/24 Assessment Was Performed
[2024-07-09 16:00] VITALS: BP 140/85; PULSE 53; RESP 16; TEMP 36.8; O2SAT 98
--- NOTE | 2024-07-09 20:38 | PC.NURSE ---
Discharge Note- Patient discharged home. IV removed and bandaid placed. Patient dressed self and packed up personal items. Discharged paperwork/education reviewed with patient and signed. Patient left by foot with all personal item and [employer] escort to personal car. Patient drove self. Left floor at 2014.
--- NOTE | 2024-07-10 21:44 | PM.DS.1 ---
History of Present Illness History of Present Illness Date Patient Seen: 07/09/24 Time Patient Seen: 19:15 Chief complaint: 8 weeks , can't keep anything down Narrative: Patient is a 28 year old at 8 wks gestation with hyperemesis. She presented last night unable to keep anything down. Was using Zofran at home, but not helping. Not sure that she wants to keep this . [facility]. Has appointment with Dr. Grullon on 08/06/24 for a new ob appt. Discharge Providers Provider Date of admission: 07/09/24 01:37 Discharge Date: 07/09/24 Primary care physician: Ellie Espinal DO Discharge provider: Leann Cobb MD Summary Hospital Course Discharge Diagnosis: 8 wks gestation Hyperemesis gravidarum Hospital Course: 28 year old at 8wks gestation was admitted last night because she was unable to keep anything down. She received IVF's and antiemetics. She is feeling much better. Has been able to keep food and fluids down. Patient requesting to go home. No vaginal bleeding. Exam Vital Signs (past 8 hours): Oxygen Delivery Method Room Air Narrative Exam Narrative: Gen: Sitting up in bed, NAD Abd: Soft and flat Objective Labs 07/08/24 23:51 07/09/24 07:15 PENDING SALE TO [facility] Medical History (Updated 07/10/24 @ 15:08 by Dorcas Rapp RN) Abnormal Pap smear of cervix Gastric ulcer Seasonal allergies Medical history non-contributory Family history non-contributory Surgical History H/O wisdom tooth extraction Family History (Updated 07/10/24 @ 15:09 by Dorcas Rapp RN) Mother Asthma Breast lump in female Family/Other Breast cancer Father Hypertension Aunt Breast cancer Sister Hypertension Social History marital status: unmarried,single household members: significant other and other (occasionally S/o's son) lives independently: Yes housing: house pets and animals: Yes (cats, birds, dogs) education level: high school occupational status: employed ([employer]) current occupational exposures/hazards: No special albino needs: No travel history: recent (domestic only) seatbelt use: always water heater temp set < 120 deg: Yes working smoke detector in home: Yes fire extinguisher in home: Yes carbon monox detector in home: Yes firearms in home: No do you feel safe at home: Yes Smoking Status: Former smoker (a long time ago) second hand exposure: No alcohol intake: former (not since , former very occasional) substance use type: marijuana (Has cut down in , now smoking occasionally. Counseled on quitting) during the past year weight has: remained stable daily servings fruits/ve-1 caffeine: No Type(s) of exercise: walking Discharge Assessment & Plan Assessment and Plan Assessment: 28 year old at 8 wks gestation Hyperemesis gravidarum Plan of Treatment: Discharge to home Pt to keep appt with Dr. Grullon on 08/06/24 Pt [facility] app[facility] Pt to call or come back if unable to keep anything down at home and Zofran not working Discharge Plan Discharge Plan Patient Disposition: Home Discharge orders & Medications Prescriptions: Continued PNV cmb#95-ferrous fumarate-FA 28 mg iron- 800 mcg tablet 1 tab PO DAILY Qty: 30 3RF ondansetron 4 mg tablet,disintegrating 4 mg PO Q8H PRN (Reason: nausea and vomiting) Qty: 10 0RF No Action acyclovir 800 mg tablet 800 mg PO BID Follow up/Referrals: Prema Grullon MD [Physician] - (Patient has a follow-up appointment with Dr. Grullon on 08/06/24 [facility] Diet/Activity/Treatments Diet: Diet as Tolerated Activity: As tolerated Visit Report/Discharge Packet Instructions: DI for Hyperemesis Gravidarum Stand Alone Forms: Patient Portal/API, Stroke Signs & Symptoms Discharge Data Primary Care Provider: Ellie Espinal Attending Provider: Shannon Pan Admit Date/Time: 07/09/24 01:37 Quality VTE Deep Vein Thrombosis/Pulmonary Embolism Present on Admission: No
== END 2024-07-09 20:15 | disposition home or self-care (01) ==
LOC: ED 07-09 01:36 → AC 07-09 01:37
PROVIDERS: Admitting Provider Specialist; Emergency Provider Emergency Medicine; PCP Family Medicine; Visit Provider Specialist
DX: O21.0 Mild hyperemesis gravidarum (principal); E87.6 Hypokalemia; Z3A.08 8 weeks gestation of pregnancy
CPT/HCPCS: 36415; 76801; 80051; 80053; 81003; 81015; 83605; 85025; 96361; 96365; 96374; 96375; 96376; 99284; G0378; J0136; J2405; J2765